=== PATIENT | female | born 1950 | race African-American/Black ===

== ENCOUNTER 2016-12-26 16:36 | Emergency (ER) | payer BC, OTHER ==
--- NOTE | 2016-12-26 18:12 | ER Document Report ---
ED Medical Screen (RME) - General Mode of Arrival: Wheelchair Information source: Patient TRAVEL OUTSIDE OF THE [place] IN LAST 30 DAYS: No <ANDREI ROJO - Last Filed: 12/26/16 18:39> <WILLAM ALVARADO - Last Filed: 12/29/16 03:05> - General Chief Complaint: Chest Pain Stated Complaint: CHEST PAIN Notes: Patient is a 66-year-old female presented emergency department for chest pain and dizziness. Patient dizziness was onset at 3:00 this morning when the patient sat up to go to the bathroom. Patient states that she was able to make it the bathroom and get back in bed. 2 hours after this initial dizziness. The patient started having a headache. When patient got up around 7:00 this morning. The patient stated she started having chest pain in the middle of her chest. Patient states the pain lasted about 20 minutes. It was waxing and waning throughout the rest of the day. Patient is still dizzy at time of exam. Patient denies any nausea or vomiting. (ANDREI ROJO) - Related Data Allergies/Adverse Reactions: erythromycin base [Erythromycin Base] Allergy (Verified 03/11/13 12:36) Past Medical History - Social History Chew tobacco use (# tins/day): No Frequency of alcohol use: None Drug Abuse: None - Past Medical History Cardiac Medical History: Reports: Hx Heart Attack - 2005, Hx Hypercholesterolemia, Hx Hypertension Endocrine Medical History: Reports: Hx Diabetes Mellitus Type 2 Renal/ Medical History: Denies: Hx Peritoneal Dialysis Past Surgical History: Reports: Hx Cardiac Catheterization - stent X3, Hx Orthopedic Surgery - right knee - Immunizations Hx Diphtheria, Pertussis, Tetanus Vaccination: No <ANDREI ROJO - Last Filed: 12/26/16 18:39> Physical Exam - Vital signs Interpretation: Hypertensive, Tachypneic - HEENT Head: Normocephalic, Atraumatic Eyes: Normal Extraocular movements intact: No Eyelashes: Normal Pupils: PERRL - Respiratory Respiratory status: No respiratory distress Chest status: Nontender Breath sounds: Normal Chest palpation: Normal - Cardiovascular Rhythm: Regular Heart sounds: Normal auscultation Murmur: No - Neurological Neuro grossly intact: Yes Cognition: Normal Orientation: AAOx4 Karen Coma Scale Eye Opening: Spontaneous Karen Coma Scale Verbal: Oriented [place] Coma Scale Motor: Obeys Commands Karen Coma Scale Total: 15 Speech: Normal <ANDREI ROJO - Last Filed: 12/26/16 18:39> Course <ANDREI ROJO - Last Filed: 12/26/16 18:39> - Laboratory Result Diagrams: 12/26/16 19:05 12/26/16 19:05 <WILLAM ALVARADO - Last Filed: 12/29/16 03:05> - Re-evaluation Re-evalutation: 12/26/16 18:23 Patient presents emergency per chief complaint of dizziness. She has a history of high blood pressure irb-liztqqi-jkfhrviic diabetes cardiac stents on Plavix hyperlipidemia but denies a history of CVA or TIA. Woke up this morning around 3 :00 to go to the bathroom said she felt lightheaded and dizzy sat on the side of the bed hasn't needs a knee replacement got up to go to the bathroom came back into bed started feeling really dizzy and lightheaded and started yelling out. She denied a headache blurred vision no vision at that time. That persisted she called off work. Around 7:00 this morning she started to develop substernal "indigestion" that lasted about 20 minutes is been intermittent throughout the day and is gone now. She did not take any aspirin for this. She has a history of PA and cardiac stents last one in [address] 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 On examination blood pressure is stable she is afebrile little tachypnea gone examination head is normal psych atraumatic pupils are equal reactive to light bilaterally no vertical or lateral nystagmus. Trachea is midline neck is supple equal bilateral director of business services strength and reflexes symmetrically. Heart rate and rhythm is regular without murmur gallop rub lungs chest has bilateral wheezes rales or rhonchi unable to perform a full abdominal examination and she sitting in a chair. Patient unable to get up to assess ambulation because she doesn't have her cane with her she needs a knee replacement and she can't walk on her own without falling. 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 Going to place orders for CT of the head for cardiac neural workup and transfer to the back to be seen and evaluated by attending physician for further evaluation and disposition. I personally performed the services described in the documentation reviewed the documentation recorded by the scribe in my presence and it accurately incompletely records my words and actions (WILLAM ALVARADO) - Vital Signs Vital signs: Temp Pulse Resp BP Pulse Ox 97.8 F 88 18 110/83 100 12/26/16 22:10 12/26/16 22:10 12/26/16 22:10 12/26/16 22:10 12/26/16 22:10 - Laboratory Laboratory results interpreted by me: 12/26/16 12/26/16 12/26/16 19:05 19:05 19:57 MCV 99 H MCH 33.6 H Glucose 213 H Calcium 10.7 H Urine Nitrite POSITIVE H Ur Leukocyte Esterase TRACE H - EKG Interpretation by Me Additional EKG results interpreted by me: 12/26/16 18:12 EKG interpreted by myself is sinus rhythm at 81 bpm Q waves in the inferior region which is present on her EKG from 03/11/13. (WILLAM ALVARADO) Doctor's Discharge <ANDREI ROJO - Last Filed: 12/26/16 18:39> <WILLAM ALVARADO - Last Filed: 12/29/16 03:05> - Discharge Clinical Impression: Dizziness Chest pain Qualifiers: Chest pain type: other chest pain Qualified Code(s): R07.89 - Other chest pain Urinary tract infection Qualifiers: Urinary tract infection type: site unspecified Hematuria presence: without hematuria Qualified Code(s): N39.0 - Urinary tract infection, site not specified Condition: Stable Disposition: HOME, SELF-CARE Instructions: Chest Pain of Unclear Cause ([facility]), Dizziness ([facility]), Family Physicians / Practices, Urinary Tract Infection ([facility]), Vertigo ([facility]) Additional Instructions: Follow up with your primary care provider in one to 2 days. Return to the emergency room immediately if symptoms worsen or any additional concerns. Prescriptions: Cephalexin Monohydrate [Keflex 500 mg Capsule] 500 mg PO BID #20 capsule Meclizine HCl [Antivert 25 mg Tablet] 25 mg PO TID #20 tablet Forms: Return to Work Referrals: SUKHWINDER GUTIERREZ MD [Primary Care Provider] - Follow up as needed Scribe Documentation - Scribe Written by Scribe:: Andrei Rojo 12/26/16 18:37 acting as scribe for :: Jose <ANDREI ROJO - Last Filed: 12/26/16 18:39>
[2016-12-26] MEDS ORDERED: MECLIZINE HCL 25 MG TABLET PO ONE (18:26)
[2016-12-26] MEDS ORDERED: ONDANSETRON 4 MG TAB.RAPDIS PO ONE (18:27)
[2016-12-26] MEDS ORDERED: ASPIRIN 325 MG TABLET PO ONE (18:27)
[2016-12-26 19:24] LABS: ABSOLUTE BASOPHILS # (AUTO) 0.1 10^3/uL (0.0-0.2); ABSOLUTE EOSINOPHILS # (AUTO) 0.1 10^3/uL (0.0-0.6); ABSOLUTE LYMPHOCYTES (AUTO) 2.8 10^3/uL (0.5-4.7); ABSOLUTE MONOCYTES (AUTO) 0.4 10^3/uL (0.1-1.4); ABSOLUTE NEUT (AUTO) 6.9 10^3/uL (1.7-8.2); BASOPHILS % (AUTO) 0.7 % (0-2); EOSINOPHILS % (AUTO) 0.8 % (0-6); HEMATOCRIT 43.5 % (36.0-47.0); HEMOGLOBIN 14.7 g/dL (12.0-15.5); HGB HCT DIFFERENCE 0.6; LYMPHOCYTES % (AUTO) 27.2 % (13-45); MEAN CORPUSCULAR HEMOGLOBIN 33.6 pg (27.0-33.4); MEAN CORPUSCULAR HGB CONC 33.8 g/dL (32.0-36.0); MEAN CORPUSCULAR VOLUME 99 fl (80-97); MONOCYTES % (AUTO) 3.9 % (3-13); RED BLOOD COUNT 4.38 10^6/uL (3.72-5.28); SEGMENTED NEUTROPHILS % (AUTO) 67.4 % (42-78); WHITE BLOOD COUNT 10.3 10^3/uL (4.0-10.5)
--- NOTE | 2016-12-26 19:35 | EKG REPORT ---
SEVERITY:- ABNORMAL ECG - SINUS RHYTHM INFERIOR INFARCT, AGE INDETERMINATE : Confirmed by: Criselda Cole 26-Dec-2016 19:35:12
[2016-12-26 19:46] LABS: ANION GAP 16 (5-19); BLOOD UREA NITROGEN 14 mg/dL (7-20); CALCIUM 10.7 mg/dL (8.4-10.2); CARBON DIOXIDE 26 mmol/L (22-30); CHLORIDE 99 mmol/L (98-107); CREATINE KINASE 45 U/L (30-135); CREATININE RESULT 0.54 mg/dL (0.52-1.25); GLUCOSE 213 mg/dL (75-110); POTASSIUM 4.3 mmol/L (3.6-5.0); SODIUM 140.6 mmol/L (137-145)
--- NOTE | 2016-12-26 19:46 | ER Document Report ---
ED Dizziness/Weakness - General Chief Complaint: Chest Pain Stated Complaint: CHEST PAIN Time seen by provider: 19:45 Mode of Arrival: Wheelchair TRAVEL OUTSIDE OF THE [place] IN LAST 30 DAYS: No - HPI Patient complains to provider of: Dizziness Onset: This morning Onset/Duration: Sudden Quality of pain: No pain Severity: Moderate Exacerbated by: Change in position, Movement of head Baseline gait: Walks w/o assistance Notes: Patient is a 66-year-old female presented emergency department for chest pain and dizziness. Patient dizziness was onset at 3:00 this morning when the patient sat up to go to the bathroom, patient reports that the dizziness is the sensation of the room spinning. 2 hours after this initial dizziness the patient started having a headache. When patient got up around 7:00 this morning she started having chest pain in the middle of her chest, she reports it is different from when she's had a heart attack in the past, and feels as though it may be related to anxiety or stress because of the dizziness she is consistently having. Patient states the pain lasted about 20 minutes. It was waxing and waning throughout the rest of the day. Patient is still dizzy at time of exam. Patient denies any nausea or vomiting. No neck pain, no vision changes, no shortness of breath, no recent head injury or illness, no fever or chills - Related Data Allergies/Adverse Reactions: erythromycin base [Erythromycin Base] Allergy (Verified 03/11/13 12:36) Past Medical History - General Information source: Patient - Social History Smoking Status: Never Smoker Chew tobacco use (# tins/day): No Frequency of alcohol use: None Drug Abuse: None Family History: Reviewed & Not Pertinent Patient has suicidal ideation: No Patient has homicidal ideation: No - Past Medical History Cardiac Medical History: Reports: Hx Heart Attack - 2005, Hx Hypercholesterolemia, Hx Hypertension Endocrine Medical History: Reports: Hx Diabetes Mellitus Type 2 Renal/ Medical History: Denies: Hx Peritoneal Dialysis Past Surgical History: Reports: Hx Cardiac Catheterization - stent X3, Hx Orthopedic Surgery - right knee - Immunizations Hx Diphtheria, Pertussis, Tetanus Vaccination: No Review of Systems - Review of Systems Constitutional: No symptoms reported EENT: No symptoms reported Cardiovascular: See HPI Respiratory: No symptoms reported Gastrointestinal: No symptoms reported Genitourinary: No symptoms reported Female Genitourinary: No symptoms reported Musculoskeletal: No symptoms reported Skin: No symptoms reported Hematologic/Lymphatic: No symptoms reported Neurological/Psychological: Headaches -: Yes All other systems reviewed and negative Physical Exam - Vital signs Vitals: Temp Pulse Resp BP Pulse Ox 98.3 F 82 26 H 186/72 H 98 12/26/16 16:50 12/26/16 16:50 12/26/16 16:50 12/26/16 16:50 12/26/16 16:50 Interpretation: Hypertensive, Tachypneic - General General appearance: Appears well, Alert - HEENT Head: Normocephalic, Atraumatic Eyes: Normal Conjunctiva: Normal Extraocular movements intact: Yes Eyelashes: Normal Pupils: PERRL Ears: Normal External canal: Normal Tympanic membrane: Normal Sinus: Normal Nasal: Normal Mouth/Lips: Normal Pharynx: Normal Neck: Normal - Respiratory Respiratory status: No respiratory distress Chest status: Nontender Breath sounds: Normal Chest palpation: Normal - Cardiovascular Rhythm: Regular Heart sounds: Normal auscultation Murmur: No - Abdominal Inspection: Obese Distension: No distension Bowel sounds: Normal Tenderness: Nontender Organomegaly: No organomegaly - Back Back: Normal, Nontender - Extremities General upper extremity: Normal inspection, Nontender, Normal color, Normal ROM , Normal temperature General lower extremity: Normal inspection, Nontender, Normal color, Normal ROM , Normal temperature, Normal weight bearing. No: Cecilia's sign - Neurological Neuro grossly intact: Yes Cognition: Normal Orientation: AAOx4 [place] Coma Scale Eye Opening: Spontaneous Karen Coma Scale Verbal: Oriented Karen Coma Scale Motor: Obeys Commands [place] Coma Scale Total: 15 Speech: Normal Motor strength normal: LUE, RUE, LLE, RLE Sensory: Normal - Psychological Associated symptoms: Normal affect, Normal mood - Skin Skin Temperature: Warm Skin Moisture: Dry Skin Color: Normal Course - Re-evaluation Re-evalutation: 12/26/16 21:36 Patient reports feeling much better after eating something, she was able to ambulate without return of symptoms, lab and imaging findings were discussed with her at bedside and are consistent with urinary tract infection, she will be started on antibiotics for this and advised to follow-up with a primary care provider or return if symptoms worsen, patient acknowledges understanding and agreement with this plan - Vital Signs Vital signs: Temp Pulse Resp BP Pulse Ox 98.3 F 84 26 H 138/64 H 98 12/26/16 16:50 12/26/16 19:50 12/26/16 16:50 12/26/16 19:50 12/26/16 16:50 - Laboratory Result Diagrams: 12/26/16 19:05 12/26/16 19:05 Laboratory results interpreted by me: 12/26/16 12/26/16 12/26/16 19:05 19:05 19:57 MCV 99 H MCH 33.6 H Glucose 213 H Calcium 10.7 H Urine Nitrite POSITIVE H Ur Leukocyte Esterase TRACE H - Diagnostic Test Radiology reviewed: Image reviewed, Reports reviewed - EKG Interpretation by Me EKG shows normal: Sinus rhythm Rate: Normal Rhythm: Torsades When compared to previous EKG there are: No significant change Discharge - Discharge Clinical Impression: Dizziness Chest pain Qualifiers: Chest pain type: other chest pain Qualified Code(s): R07.89 - Other chest pain Urinary tract infection Qualifiers: Urinary tract infection type: site unspecified Hematuria presence: without hematuria Qualified Code(s): N39.0 - Urinary tract infection, site not specified Condition: Stable Disposition: HOME, SELF-CARE Instructions: Chest Pain of Unclear Cause ([facility]), Urinary Tract Infection ([facility]) , Dizziness ([facility]), Vertigo ([facility]), Family Physicians / Practices Additional Instructions: Follow up with your primary care provider in one to 2 days. Return to the emergency room immediately if symptoms worsen or any additional concerns. Prescriptions: Cephalexin Monohydrate [Keflex 500 mg Capsule] 500 mg PO BID #20 capsule Meclizine HCl [Antivert 25 mg Tablet] 25 mg PO TID #20 tablet Referrals: SUKHWINDER GUTIERREZ MD [Primary Care Provider] - Follow up as needed
[2016-12-26 19:59] LABS: TROPONIN I < 0.012 ng/mL
[2016-12-26 20:20] LABS: APPEARANCE,URINE SLIGHTLY-CLOUDY; BILIRUBIN,URINE NEGATIVE (NEGATIVE); GLUCOSE, URINE NEGATIVE (NEGATIVE); KETONES,URINE NEGATIVE (NEGATIVE); LEUKOCYTE ESTERASE,URINE TRACE (NEGATIVE); NITRITE,URINE POSITIVE (NEGATIVE); PROTEIN,URINE NEGATIVE (NEGATIVE); URINE SPECIFIC GRAVITY 1.012; UROBILINOGEN,URINE NEGATIVE mg/dL (<2.0)
[2016-12-26] MEDS ORDERED: NORMAL SALINE 1000 ML 1,000 ML IV PRN (20:24)
[2016-12-26] MEDS ORDERED: CEPHALEXIN 500 MG CAPSULE PO ONE (21:35)
[2016-12-26 22:13] VITALS: BP 110/83
== END 2016-12-26 22:15 | disposition home or self-care (01) ==
LOC: ER 16:36
DX: R07.9 Chest pain, unspecified (principal); R42 Dizziness and giddiness; N39.0 Urinary tract infection, site not specified; R51 Headache; R06.82 Tachypnea, not elsewhere classified; I25.2 Old myocardial infarction; I10 Essential (primary) hypertension; E11.9 Type 2 diabetes mellitus without complications; Z98.61 Coronary angioplasty status; Z88.1 Allergy status to other antibiotic agents
CPT/HCPCS: 93005; 99285; 36415; 82550; 85025; 80048; 81001; 84484; 83880; 71010; 70450; 93010; S0119

== ENCOUNTER → 2017-05-25 | Outpatient (CLI) | payer OTHER ==
--- NOTE | 2017-05-25 12:42 | RADIOLOGY REPORT (SQ) ---
EXAM DESCRIPTION: KNEE BILATERAL 1-2 VIEWS COMPLETED DATE/TIME: 05/25/2017 10:58 am REASON FOR STUDY: OSTEO ARTHRISTIS OF KNEES COMPARISON: 12/19/2012 NUMBER OF VIEWS: Two views right knee, two views left knee TECHNIQUE: AP and lateral standing bilateral knees. LIMITATIONS: None. FINDINGS: MINERALIZATION: Normal. RIGHT KNEE High-grade patellofemoral, medial, and lateral compartment joint space narrowing with a [id number] appearance, and bulky osteophytes. No suprapatellar knee joint effusion or loose bodies. Atheroscle rotic popliteal artery calcification. LEFT KNEE High-grade patellofemoral, medial, and lateral compartment joint space narrowing with a vveo-[id number] appearance, and bulky osteophytes. No suprapatellar knee joint effusion or loose bodies. Atheroscler otic popliteal artery calcification. IMPRESSION: Advanced tricompartment osteoarthritis both knees TECHNICAL DOCUMENTATION: JOB ID: [id number] [employer]- All Rights Reserved
== END ==
LOC: RAD 10:07
DX: M17.0 Bilateral primary osteoarthritis of knee (principal)

== ENCOUNTER 2017-12-06 18:33 | Emergency (ER) | payer MEDICARE, BC ==
--- NOTE | 2017-12-06 19:01 | ER Document Report ---
ED Medical Screen (RME) - General Chief Complaint: Chest Pain Stated Complaint: CHEST PAIN Time Seen by Provider: 12/06/17 19:00 Notes: 67-year-old female patient with chest pain and a history of inferior wall [place] with 3 stents. Pain started about 2 AM this morning. It was substernal radiating to the left. I have greeted and performed a rapid initial assessment of this patient. A comprehensive ED assessment and evaluation of the patient, analysis of test results and completion of the medical decision making process will be conducted by additional ED providers. TRAVEL OUTSIDE OF THE [place] IN LAST 30 DAYS: No - Related Data Allergies/Adverse Reactions: erythromycin base [Erythromycin Base] Allergy (Verified 12/06/17 18:36) Past Medical History - Past Medical History Cardiac Medical History: Reports: Hx Heart Attack - 2004, Hx Hypercholesterolemia, Hx Hypertension Endocrine Medical History: Reports: Hx Diabetes Mellitus Type 2 Renal/ Medical History: Denies: Hx Peritoneal Dialysis Past Surgical History: Reports: Hx Cardiac Catheterization - stent X3, Hx Orthopedic Surgery - right knee - Immunizations Hx Diphtheria, Pertussis, Tetanus Vaccination: No
[2017-12-06 19:24] LABS: ABSOLUTE EOSINOPHILS # (AUTO) 0.1 10^3/uL (0.0-0.6); ABSOLUTE LYMPHOCYTES (AUTO) 2.9 10^3/uL (0.5-4.7); ABSOLUTE MONOCYTES (AUTO) 0.6 10^3/uL (0.1-1.4); ABSOLUTE NEUT (AUTO) 9.1 10^3/uL (1.7-8.2); BASOPHILS % (AUTO) 0.4 % (0-2); EOSINOPHILS % (AUTO) 0.7 % (0-6); HEMATOCRIT 43.1 % (36.0-47.0); HEMOGLOBIN 14.7 g/dL (12.0-15.5); LYMPHOCYTES % (AUTO) 22.7 % (13-45); MEAN CORPUSCULAR HEMOGLOBIN 34.1 pg (27.0-33.4); MEAN CORPUSCULAR HGB CONC 34.1 g/dL (32.0-36.0); MEAN CORPUSCULAR VOLUME 100 fl (80-97); MONOCYTES % (AUTO) 4.8 % (3-13); PLATELET COUNT 350 10^3/uL (150-450); RED CELL DISTRIBUTION WIDTH 13.5 % (11.5-14.0); SEGMENTED NEUTROPHILS % (AUTO) 71.4 % (42-78); TOTAL CELLS COUNTED % (AUTO) 100 %; WHITE BLOOD COUNT 12.8 10^3/uL (4.0-10.5)
[2017-12-06 19:58] LABS: ALANINE AMINOTRANSFERASE 41 U/L (9-52); ALBUMIN 4.4 g/dL (3.5-5.0); ALKALINE PHOSPHATASE 91 U/L (38-126); ANION GAP 11 (5-19); ASPARTATE AMINO TRANSFERASE 22 U/L (14-36); BILIRUBIN,DIRECT 0.2 mg/dL (0.0-0.4); BILIRUBIN,TOTAL 0.3 mg/dL (0.2-1.3); BLOOD UREA NITROGEN 15 mg/dL (7-20); CALCIUM 10.4 mg/dL (8.4-10.2); CARBON DIOXIDE 31 mmol/L (22-30); CHLORIDE 98 mmol/L (98-107); CREATINE KINASE 40 U/L (30-135); GLUCOSE 146 mg/dL (75-110); POTASSIUM 3.9 mmol/L (3.6-5.0); SODIUM 140.2 mmol/L (137-145); TOTAL PROTEIN 7.3 g/dL (6.3-8.2)
[2017-12-06] MEDS ORDERED: ONDANSETRON HCL INJ/PF 4 MG/2 ML SDV IV ONE (20:02)
[2017-12-06] MEDS ORDERED: MORPHINE SULFATE 10 MG/ML INJ IV ONE (20:03)
[2017-12-06 20:10] LABS: CREATINE KINASE MB 0.5 ng/mL (<4.55); TROPONIN I 0.016 ng/mL
--- NOTE | 2017-12-06 20:39 | ER Document Report ---
ED General - General Chief Complaint: Chest Pain Stated Complaint: CHEST PAIN Time Seen by Provider: 12/06/17 19:00 Information source: Patient Notes: Patient is a 67-year-old female who presents to the emergency department with complaints of upper abdominal pain that radiates to her right upper quadrant. Patient states this started about 2:00 this morning. She has vomited one time at home but denies any fever, nausea, or diarrhea. Patient reports that she tried taking Zantac several times today and she felt that this may be her acid reflux acting up. Patient reports that she had a myocardial infarction in 2009 with 3 stents placed, a hiatal hernia, hypertension and nau-cumbeku-tbalsluym diabetes. She reports a surgical history of a right knee surgery in the 80s. She smokes occasionally, drinks alcohol occasionally and denies any illicit drug use. TRAVEL OUTSIDE OF THE [place] IN LAST 30 DAYS: No - Related Data Allergies/Adverse Reactions: erythromycin base [Erythromycin Base] Allergy (Verified 12/06/17 18:36) Past Medical History - General Information source: Patient - Social History Smoking Status: Current Some Day Smoker Frequency of alcohol use: Occasional Drug Abuse: None Lives with: Family Family History: Reviewed & Not Pertinent - Past Medical History Cardiac Medical History: Reports: Hx Heart Attack - 2009 with 3 stents, Hx Hypercholesterolemia, Hx Hypertension Endocrine Medical History: Reports: Hx Diabetes Mellitus Type 2 Renal/ Medical History: Denies: Hx Peritoneal Dialysis Past Surgical History: Reports: Hx Cardiac Catheterization - stent X3, Hx Orthopedic Surgery - right knee - Immunizations Hx Diphtheria, Pertussis, Tetanus Vaccination: Yes Review of Systems - Review of Systems Constitutional: No symptoms reported EENT: No symptoms reported Cardiovascular: See HPI Respiratory: No symptoms reported Gastrointestinal: See HPI Genitourinary: No symptoms reported Female Genitourinary: No symptoms reported Musculoskeletal: No symptoms reported Skin: No symptoms reported Hematologic/Lymphatic: No symptoms reported Neurological/Psychological: No symptoms reported Physical Exam - Vital signs Vitals: Resp Pulse Ox 31 H 97 12/06/17 18:59 12/06/17 18:59 - Notes Notes: PHYSICAL EXAMINATION: GENERAL: Well-appearing, well-nourished and in no acute distress. HEAD: Atraumatic, normocephalic. EYES: Pupils equal round and reactive to light, extraocular movements intact, conjunctiva are normal. ENT: Nares patent, oropharynx clear without exudates. Moist mucous membranes. NECK: Normal range of motion, supple without lymphadenopathy LUNGS: Breath sounds clear to auscultation bilaterally and equal. No wheezes rales or rhonchi. HEART: Regular rate and rhythm without murmurs ABDOMEN: Soft, right upper quadrant and epigastric area tender, nondistended abdomen, +murphys sign. Female : deferred Musculoskeletal: Normal range of motion, no pitting or edema. No cyanosis. NEUROLOGICAL: Cranial nerves grossly intact. Normal speech. Normal sensory, motor exams PSYCH: Normal mood, normal affect. SKIN: Warm, Dry, normal turgor, no rashes or lesions noted. Course - Re-evaluation Re-evalutation: On initial assessment patient, patient denies any chest pain. EKG shows a sinus rhythm with no ST elevations or depressions, there are Q waves present however compared with previous EKG there is no change. Troponin is negative. Patient reports that the symptoms started at 2:00 this morning. Low suspicion of ACS. Patient is reporting upper abdominal/epigastric pain that radiates to her right upper quadrant. Will add on lipase and RUQ U/S to orders initiated in RME and treat for pain and nausea. Patient is agreeable to this plan. Right upper quadrant ultrasound shows fatty liver and gallstones, there is no pericholecystic fluid noted and no wall thickening. All labs are unremarkable. Patient is reporting no nausea is this time and pain 1/5. Discussed multiple options with patient, patient has decided that prefers to go home. Patient will be given information for surgical referral, patient will call tomorrow for an appointment. Discussed low fat, non-spicy diet with patient. Patient given strict ED return precautions to include worsening abdominal pain, persistent vomiting and fever. - Vital Signs Vital signs: Temp Pulse Resp BP Pulse Ox 98.2 F 71 16 145/50 H 98 12/06/17 23:10 12/06/17 23:10 12/06/17 23:10 12/06/17 23:10 12/06/17 23:10 - Laboratory Result Diagrams: 12/06/17 19:15 12/06/17 19:15 Laboratory results interpreted by me: 12/06/17 12/06/17 19:15 19:15 WBC 12.8 H MCV 100 H MCH 34.1 H Absolute Neutrophils 9.1 H Carbon Dioxide 31 H Creatinine 0.51 L Glucose 146 H Calcium 10.4 H - EKG Interpretation by Ma EKG shows normal: Sinus rhythm Rate: Normal Discharge - Discharge Clinical Impression: Gallstone Qualifiers: Cholecystitis presence: without cholecystitis Biliary obstruction: without biliary obstruction Qualified Code(s): K80.20 - Calculus of gallbladder without cholecystitis without obstruction Condition: Stable Disposition: HOME, SELF-CARE Instructions: Gallbladder Disease ([facility]), Low-Fat Diet ([facility]), Oral Narcotic Medication ([facility]) Additional Instructions: Your abdominal pain appears to be caused by gallstones in your gallbladder. Please take the pain and nausea medications as needed. We are giving you information to follow-up with a surgeon, please call them at your earliest convenience to set up an appointment. Please return to the emergency department if you develop fever or chills, have persistent vomiting, cannot keep anything down, or have increased pain not controlled by the pain medications, or any other concerning symptoms. Prescriptions: Hydrocodone/Acetaminophen [[place] 5-325 mg Tablet] 0.5 - 1 tab PO Q4 PRN #12 tablet PRN Reason: Ondansetron [Zofran Odt 4 mg Tablet] 1 - 2 tab PO Q4H PRN #15 tab.rapdis PRN Reason: For Nausea/Vomiting Referrals: JERAD GROVE DO [Primary Care Provider] - Follow up as needed SURGERY [Provider Group] - Follow up as needed
--- NOTE | 2017-12-06 21:19 | RADIOLOGY REPORT (SQ) ---
EXAM DESCRIPTION: U/S ABDOMEN LIMITED W/O DOP COMPLETED DATE/TIME: 12/06/2017 9:07 pm REASON FOR STUDY: epigastric, RUQ pain COMPARISON: None. TECHNIQUE: Dynamic and static grayscale images acquired of the right upper quadrant and recorded on PACS. Additional selected color Doppler and spectral images recorded. LIMITATIONS: Markedly limited study due to the patient's obesity and overlying bowel gas. FINDINGS: PANCREAS: Obscured. LIVER: Limited visualization. Echotexture is coarse with increased echogenicity consistent with fatt y infiltration. No masses. LIVER VASCULATURE: Not visualized. GALLBLADDER: Gallstone(s). No pericholecystic fluid. No wall thickening. ULTRASOUND-DETECTED CALDWELL'S SIGN: Positive. INTRAHEPATIC DUCTS AND COMMON DUCT: Not visualized. INFERIOR VENA CAVA: Not visualized. AORTA: Not visualized. RIGHT KIDNEY: Normal size. Normal echogenicity. No solid or suspicious masses. No hydronephrosis. No calcifications. PERITONEAL CAVITY AND RIGHT PLEURAL SPACE: No ascites or effusions. OTHER: No other significant finding. IMPRESSION: MARKEDLY LIMITED STUDY. GALLSTONES. FATTY INFILTRATION OF THE LIVER. TECHNICAL DOCUMENTATION: JOB ID: [id number] [employer]- All Rights Reserved Reading location - IP/workstation name: [email or web address]
[2017-12-06] MEDS ORDERED: KETOROLAC TROMETHAMINE INJ/PF 30 MG/1 ML SDV IV ONE (22:04)
[2017-12-06] MEDS ORDERED: ONDANSETRON ODT 4 MG TAB (6 TAB/ER DISP) PO PRN (22:06)
--- NOTE | 2017-12-06 22:54 | EKG REPORT ---
SEVERITY:- ABNORMAL ECG - SINUS RHYTHM PROBABLE INFERIOR INFARCT, AGE INDETERMINATE : Confirmed by: Criselda Cole 06-Dec-2017 22:53:45
[2017-12-06 23:35] VITALS: BP 145/50
== END 2017-12-06 23:20 | disposition home or self-care (01) ==
LOC: ER 18:33
DX: K80.20 Calculus of gallbladder without cholecystitis without obstruction (principal); K21.9 Gastro-esophageal reflux disease without esophagitis; K76.0 Fatty (change of) liver, not elsewhere classified; R11.10 Vomiting, unspecified; I10 Essential (primary) hypertension; E11.9 Type 2 diabetes mellitus without complications; F17.200 Nicotine dependence, unspecified, uncomplicated; I25.2 Old myocardial infarction; Z95.5 Presence of coronary angioplasty implant and graft; Z88.1 Allergy status to other antibiotic agents
CPT/HCPCS: 93005; 99285; 96374; 96375; 36415; 82553; 82550; 83690; 85025; 80053; 84484; 76705; 93010; J1885; J2270; J2405; A9270

== ENCOUNTER 2017-12-07 17:07 | Inpatient (IN) | payer MEDICARE, BC ==
[2017-12-07] MEDS ORDERED: ONDANSETRON HCL INJ/PF 4 MG/2 ML SDV IV ONE (19:05)
[2017-12-07] MEDS ORDERED: MORPHINE SULFATE 10 MG/ML INJ IV ONE (19:05)
[2017-12-07] MEDS ORDERED: NORMAL SALINE 1000 ML 1,000 ML IV ONE (19:05)
--- NOTE | 2017-12-07 19:06 | ER Document Report ---
ED Medical Screen (RME) - General Chief Complaint: Abdominal Pain Stated Complaint: ABDOMINAL PAIN Time Seen by Provider: 12/07/17 19:05 Notes: Patient states that she was seen here yesterday and diagnosed with gallstones. She states she was sent home with pain medication and nausea medication. She states she is unable to tolerate the pain at home. She states she returned because she wants to have the gallstones "taken out". TRAVEL OUTSIDE OF THE [place] IN LAST 30 DAYS: No - Related Data Allergies/Adverse Reactions: erythromycin base [Erythromycin Base] Allergy (Verified 12/07/17 17:10) Past Medical History - Social History Chew tobacco use (# tins/day): No Frequency of alcohol use: Occasional Drug Abuse: None - Past Medical History Cardiac Medical History: Reports: Hx Heart Attack - 2009 with 3 stents, Hx Hypercholesterolemia, Hx Hypertension Endocrine Medical History: Reports: Hx Diabetes Mellitus Type 2 Renal/ Medical History: Denies: Hx Peritoneal Dialysis Past Surgical History: Reports: Hx Cardiac Catheterization - stent X3, Hx Orthopedic Surgery - right knee - Immunizations Hx Diphtheria, Pertussis, Tetanus Vaccination: Yes Physical Exam - Vital signs Vitals: Temp Pulse Resp BP Pulse Ox 97.6 F 76 22 H 129/54 H 98 12/07/17 17:52 12/07/17 17:52 12/07/17 17:52 12/07/17 17:52 12/07/17 17:52 Course - Vital Signs Vital signs: Temp Pulse Resp BP Pulse Ox 97.6 F 76 22 H 129/54 H 98 12/07/17 17:52 12/07/17 17:52 12/07/17 17:52 12/07/17 17:52 12/07/17 17:52
[2017-12-07 19:38] LABS: ABSOLUTE BASOPHILS # (AUTO) 0.1 10^3/uL (0.0-0.2); ABSOLUTE LYMPHOCYTES (AUTO) 1.8 10^3/uL (0.5-4.7); ABSOLUTE NEUT (AUTO) 12.3 10^3/uL (1.7-8.2); BASOPHILS % (AUTO) 0.4 % (0-2); EOSINOPHILS % (AUTO) 0.2 % (0-6); HEMATOCRIT 39.6 % (36.0-47.0); HEMOGLOBIN 13.6 g/dL (12.0-15.5); LYMPHOCYTES % (AUTO) 12.2 % (13-45); MEAN CORPUSCULAR HEMOGLOBIN 34.3 pg (27.0-33.4); MEAN CORPUSCULAR HGB CONC 34.3 g/dL (32.0-36.0); MEAN CORPUSCULAR VOLUME 100 fl (80-97); MONOCYTES % (AUTO) 6.3 % (3-13); PLATELET COUNT 330 10^3/uL (150-450); RED BLOOD COUNT 3.96 10^6/uL (3.72-5.28); RED CELL DISTRIBUTION WIDTH 13.4 % (11.5-14.0); SEGMENTED NEUTROPHILS % (AUTO) 80.9 % (42-78); TOTAL CELLS COUNTED % (AUTO) 100 %; WHITE BLOOD COUNT 15.2 10^3/uL (4.0-10.5)
--- NOTE | 2017-12-07 20:11 | ER Document Report ---
ED General - General Chief Complaint: Abdominal Pain Stated Complaint: ABDOMINAL PAIN Time Seen by Provider: 12/07/17 19:05 TRAVEL OUTSIDE OF THE [place] IN LAST 30 DAYS: No - HPI Notes: Patient is a 67-year-old female with a history of OR in 2009 with 3 stent placements, hiatal hernia, hypertension, diabetes type 2 who presents to the ED complaining of continued intermittent right upper quadrant and epigastric pain 1-2 days. Patient was evaluated yesterday here in the emergency department and was found to have gallstones with otherwise negative workup. Patient states that her pain is worsened with food intake and it starts in the epigastrium and moves over to the right upper quadrant. Patient has had intermittent nausea over the last couple days as well, but has not vomited since Thursday. Patient's last p.o. intake was applesauce about 3 hours ago at 1700, and prior to that was some toast and some fruit at 1500. Patient states that she is still urinating normally and her last normal bowel movement was on Thursday. Patient has not been having any melena or hematochezia. Patient states that she is ambulatory without any chest pains or shortness of breath. Patient states that she is currently comfortable as she is not eating any food. Denies any headache , fever, neck pain, URI, sore throat, chest pain, palpitations, syncope, cough, shortness of breath, wheeze, dyspnea, vomiting/diarrhea, urinary retention, dysuria, hematuria, back pain, loss of control of bowel or bladder, numbness/ tingling, saddle anesthesia, muscle paralysis/weakness, or rash. + ASA 81mg daily and Plavix. (Plavix this AM around 1100, pt does not believe she took her ASA this morning). + occ smoker/etoh, no drugs - Related Data Allergies/Adverse Reactions: erythromycin base [Erythromycin Base] Allergy (Verified 12/07/17 17:10) Past Medical History - Social History Smoking Status: Current Some Day Smoker Chew tobacco use (# tins/day): No Frequency of alcohol use: Occasional Drug Abuse: None Family History: Reviewed & Not Pertinent Patient has suicidal ideation: No Patient has homicidal ideation: No - Past Medical History Cardiac Medical History: Reports: Hx Heart Attack - 2009 with 3 stents, Hx Hypercholesterolemia, Hx Hypertension Endocrine Medical History: Reports: Hx Diabetes Mellitus Type 2 Renal/ Medical History: Denies: Hx Peritoneal Dialysis Past Surgical History: Reports: Hx Cardiac Catheterization - stent X3, Hx Orthopedic Surgery - right knee - Immunizations Hx Diphtheria, Pertussis, Tetanus Vaccination: Yes Review of Systems - Review of Systems -: Yes All other systems reviewed and negative Physical Exam - Vital signs Vitals: Temp Pulse Resp BP Pulse Ox 97.6 F 76 22 H 129/54 H 98 12/07/17 17:52 12/07/17 17:52 12/07/17 17:52 12/07/17 17:52 12/07/17 17:52 - Notes Notes: PHYSICAL EXAMINATION: GENERAL: Well-appearing, well-nourished and in no acute distress. A&Ox4. Morbidly obese. Answers questions appropriately. HEAD: Atraumatic, normocephalic. EYES: Pupils equal round and reactive to light, extraocular movements intact, sclera anicteric, conjunctiva are normal. ENT: Nares patent and without discharge. oropharynx clear without exudates. No tonsilar hypertrophy or erythema. Moist mucous membranes. NECK: Normal range of motion, supple without lymphadenopathy LUNGS: Breath sounds clear to auscultation bilaterally and equal. No wheezes rales or rhonchi. HEART: Regular rate and rhythm without murmurs, rubs, gallops. ABDOMEN: Soft, nondistended abdomen. No guarding, no rebound. No masses appreciated. Normal bowel sounds present. No CVA tenderness bilaterally. + RUQ and mild epigastric tenderness to palp. + julio. Musculoskeletal: FROM to passive/active. Strength 5+/5. Extremities: No cyanosis, clubbing, or edema b/l. Peripheral pulses 2+. Capillary refill less than 3 seconds. NEUROLOGICAL: Normal speech, normal gait. Normal sensory, motor exams PSYCH: Normal mood, normal affect. SKIN: Warm, Dry, normal turgor, no rashes or lesions noted. Course - Re-evaluation Re-evalutation: 12/07/17 20:[address] Magdaleno who will come evaluate the patient. 12/07/17 20:54 Dr. Magdaleno evaluated and accepted patient for failed outpatient. We will keep her NPO. Hold Plavix/ASA. Pre-op ekg, cxr, ptinr/ptt ordered. Pt in agreement with plan. - Vital Signs Vital signs: Temp Pulse Resp BP Pulse Ox 97.6 F 76 22 H 129/54 H 98 12/07/17 17:52 12/07/17 17:52 12/07/17 17:52 12/07/17 17:52 12/07/17 17:52 - Laboratory Result Diagrams: 12/07/17 19:29 12/07/17 19:55 Laboratory results interpreted by me: 12/07/17 12/07/17 19:29 19:55 WBC 15.2 H MCV 100 H MCH 34.3 H Seg Neutrophils % 80.9 H Lymphocytes % 12.2 L Absolute Neutrophils 12.3 H Chloride 96 L Creatinine 0.49 L Glucose 206 H Calcium 10.3 H Discharge - Discharge Clinical Impression: Gallstones, RUQ pain Condition: Stable Disposition: ADMITTED INPATIENT Admitting Provider: Surgicalist - Dr. Magdaleno Unit Admitted: Surgical Floor Referrals: JERAD GROVE DO [Primary Care Provider] - Follow up as needed
[2017-12-07 20:25] LABS: ALANINE AMINOTRANSFERASE 29 U/L (9-52); ALBUMIN 4.3 g/dL (3.5-5.0); ALKALINE PHOSPHATASE 86 U/L (38-126); ANION GAP 12 (5-19); ASPARTATE AMINO TRANSFERASE 21 U/L (14-36); BILIRUBIN,DIRECT 0.4 mg/dL (0.0-0.4); BILIRUBIN,TOTAL 0.7 mg/dL (0.2-1.3); BLOOD UREA NITROGEN 11 mg/dL (7-20); CALCIUM 10.3 mg/dL (8.4-10.2); CARBON DIOXIDE 30 mmol/L (22-30); CHLORIDE 96 mmol/L (98-107); GLUCOSE 206 mg/dL (75-110); LIPASE 86.3 U/L (23-300); POTASSIUM 3.8 mmol/L (3.6-5.0); SODIUM 137.8 mmol/L (137-145); TOTAL PROTEIN 7.6 g/dL (6.3-8.2)
[2017-12-07] MEDS ORDERED: DEXTROSE 50%-WATER 25 GM/50 ML DISP.SYRIN IV PRN ×2 (21:03)
[2017-12-07] MEDS ORDERED: DEXTROSE 40% GEL 15 GM TUBE PO PRN ×2 (21:03)
[2017-12-07] MEDS ORDERED: GLUCAGON,HUMAN RECOMB 1 MG INJ IM PRN (21:03)
[2017-12-07 21:07] LABS: INTERNATIONAL RATION (INR) 0.91; PROTHROMBIN TIME 12.7 SEC (11.4-15.4)
[2017-12-07 21:08] LABS: PARTIAL THROMBOPLASTIN TIME 22.5 SEC (23.5-35.8)
--- NOTE | 2017-12-07 21:14 | PDOC H&P ---
History of Present Illness Admission Date/PCP: 12/07/17 21:01 JERAD GROVE DO Patient complains of: Abdominal pain History of Present Illness: MAGGIE RIDER is a 67 year old female Patient is seen in the emergency department the second time via ground rescue complaining of abdominal pain nausea, radiation to the right upper quadrant and back. She was seen yesterday in the emergency department where she was evaluated and found to have gallstones by gallbladder ultrasonography. She was given the option to be admitted but preferred to be discharged home. Returns to the emergency department with the above complaints. Last bowel movement yesterday, normal. She has been hurting for 2 days. She has previous episodes of abdominal pain. Never had a colonoscopy. Surgery was consulted and she was advised admission for definitive management. Past Medical History Past Medical History: Obesity Cardiac Medical History: Reports: Myocardial Infarction - 2009 with 3 stents, Hyperlipidema, Hypertension Endocrine Medical History: Reports: Diabetes Mellitus Type 2 Past Surgical History Past Surgical History: Reports: Cardiac Catheterization - stent X3, Orthopedic Surgery - right knee, Other Social History Smoking Status: Current Some Day Smoker Hx Recreational Drug Use: No Hx Prescription Drug Abuse: No Family History Family History: Reviewed & Not Pertinent Parental Family History Reviewed: Yes Children Family History Reviewed: Yes Sibling(s) Family History Reviewed.: Yes Medication/Allergy Allergies/Adverse Reactions: erythromycin base [Erythromycin Base] Allergy (Verified 12/07/17 17:10) Review of Systems Constitutional: PRESENT: as per HPI Eyes: ABSENT: visual disturbances Ears: ABSENT: hearing changes Cardiovascular: ABSENT: chest pain, dyspnea on exertion, edema, orthropnea, palpitations Gastrointestinal: PRESENT: as per HPI Genitourinary: ABSENT: dysuria, hematuria Musculoskeletal: PRESENT: other - Patient has chronic knee pain. ABSENT: joint swelling Integumentary: ABSENT: rash, wounds Psychiatric: ABSENT: anxiety, depression, homidical ideation, suicidal ideation Endocrine: ABSENT: cold intolerance, heat intolerance, polydipsia, polyuria Physical Exam Vital Signs: Temp Pulse Resp BP Pulse Ox 97.6 F 76 22 H 129/54 H 98 12/07/17 17:52 12/07/17 17:52 12/07/17 17:52 12/07/17 17:52 12/07/17 17:52 General appearance: PRESENT: no acute distress Head exam: PRESENT: normocephalic Eye exam: PRESENT: EOMI Ear exam: PRESENT: normal external ear exam Mouth exam: PRESENT: dry mucosa Neck exam: PRESENT: full ROM Respiratory exam: PRESENT: clear to auscultation roro Cardiovascular exam: PRESENT: RRR Pulses: PRESENT: normal carotid pulses, normal radial pulses, +1 pedal pulses bilateral GI/Abdominal exam: PRESENT: other - Distended, epigastric tenderness without rigidity or guarding Rectal exam: PRESENT: deferred Extremities exam: PRESENT: full ROM Musculoskeletal exam: PRESENT: ambulatory Neurological exam: PRESENT: alert, awake, oriented to person, oriented to place Psychiatric exam: PRESENT: appropriate affect Assessment & Plan - Diagnosis (1) Cholecystitis with cholelithiasis Qualifiers: Cholelithiasis location: gallbladder Cholecystitis acuity: acute and chronic Biliary obstruction: without biliary obstruction Qualified Code(s): K80.12 - Calculus of gallbladder with acute and chronic cholecystitis without obstruction Is this a current diagnosis for this admission?: Yes Plan: Because of intractable pain, patient will be admitted to the surgical service, kept on ice chips, otherwise n.p.o., Plavix held, and eventually set up for laparoscopic, possible open cholecystectomy likely in 48 hours. In the interim we will check chest x-ray and EKG and if necessary get cardiac clearance. I have explained to the above to the patient and I believe she understands and agrees to proceed. (2) Gallstones Is this a current diagnosis for this admission?: Yes (3) Morbid obesity with BMI of 50.0-59.9, adult Is this a current diagnosis for this admission?: Yes (4) Hypertension Qualifiers: Hypertension type: essential hypertension Qualified Code(s): I10 - Essential (primary) hypertension Is this a current diagnosis for this admission?: Yes (5) Diabetes mellitus Qualifiers: Diabetes mellitus type: type 2 Diabetes mellitus fdc insulin use: with medical terminologist use Diabetes mellitus complication status: without complication Qualified Code(s): E11.9 - Type 2 diabetes mellitus without complications; Z79.4 - FDC (current) use of insulin; Z79.4 - FDC ( current) use of insulin; Z79.4 - FDC (current) use of insulin; Z79.4 - dedicated intermodal truck driver (current) use of insulin Is this a current diagnosis for this admission?: Yes Plan: Will place on sliding insulin scale (6) Smoker Is this a current diagnosis for this admission?: Yes (7) Elevated cholesterol Is this a current diagnosis for this admission?: Yes (8) History of myocardial infarction Is this a current diagnosis for this admission?: Yes Plan: 2010 with stents , on Plavix; will check EKG may require cardiac evaluation (9) Anticoagulation adequate Is this a current diagnosis for this admission?: Yes Plan: Patient on Plavix since 2009 last taken at 11:00 AM today - Time Time Spent: 50 to 70 Minutes Critical Time spent with patient: Less than 15 minutes Anticipated discharge: Home - Inpatient Certification Based on my medical assessment, after consideration of the patient's comorbidities, presenting symptoms, or acuity I expect that the services needed warrant INPATIENT care.: Yes I certify that my determination is in accordance with my understanding of Medicare's requirements for reasonable and necessary INPATIENT services [42 CFR 412.3e].: Yes Medical Necessity: Need for Pain Control, Need for IV Antibiotics, Need for Surgery
--- NOTE | 2017-12-07 21:37 | RADIOLOGY REPORT (SQ) ---
EXAM DESCRIPTION: CHEST 2 VIEWS COMPLETED DATE/TIME: 12/07/2017 9:17 pm REASON FOR STUDY: pre-op, epigastric/RUQ pain COMPARISON: 2016. NUMBER OF VIEWS: Two view. TECHNIQUE: Frontal and lateral radiographic views of the chest acquired. LIMITATIONS: None. FINDINGS: LUNGS AND PLEURA: Low lung volumes. No opacities, masses or pneumothorax. No pleural eff usion. MEDIASTINUM AND HILAR STRUCTURES: No masses. No contour abnormalities. HEART AND VASCULAR STRUCTURES: Heart normal in size and contour. No evidence for failure. BONES: No acute findings. HARDWARE: None in the chest. OTHER: No other significant finding. IMPRESSION: LOW LUNG VOLUMES. NO SIGNIFICANT RADIOGRAPHIC FINDING IN THE CHEST. TECHNICAL DOCUMENTATION: JOB ID: [id number] [employer]- All Rights Reserved Reading location - IP/workstation name: [email or web address]
[2017-12-07] MEDS: NORMAL SALINE 1000 ML 1,000 ML IV PRN (22:01)
[2017-12-07] MEDS: CEFAZOLIN 1 GM/D5W RTU 1 GM/50 ML RTUPB IV SCH (22:02)
[2017-12-07] MEDS: INSULIN REG, HUMAN 100 UNIT/ML 3 ML VIAL (PYX) SUBCUT PRN (22:59)
[2017-12-08] MEDS: NORMAL SALINE 1000 ML 1,000 ML IV PRN ×2 (03:56→13:48)
[2017-12-08] MEDS: CEFAZOLIN 1 GM/D5W RTU 1 GM/50 ML RTUPB IV SCH ×3 (05:23→21:56)
[2017-12-08] MEDS: INSULIN REG, HUMAN 100 UNIT/ML 3 ML VIAL (PYX) SUBCUT PRN (05:25)
[2017-12-08] MEDS: KETOROLAC TROMETHAMINE INJ/PF 30 MG/1 ML SDV IV PRN ×2 (05:34→15:48)
--- NOTE | 2017-12-08 07:36 | EKG REPORT ---
SEVERITY:- ABNORMAL ECG - SINUS RHYTHM PROBABLE LEFT ATRIAL ABNORMALITY NONSPECIFIC INTRAVENTRICULAR CONDUCTION DELAY CONSIDER OLD INFERIOR [place] : Confirmed by: Kwabena Higgins MD 08-Dec-2017 07:34:58
--- NOTE | 2017-12-08 07:36 | EKG REPORT ---
SEVERITY:- ABNORMAL ECG - SINUS RHYTHM NONSPECIFIC T ABNORMALITIES, DIFFUSE LEADS : Confirmed by: Kwabena Higgins MD 08-Dec-2017 07:35:13
[2017-12-09] MEDS: INSULIN REG, HUMAN 100 UNIT/ML 3 ML VIAL (PYX) SUBCUT PRN ×2 (00:17→17:08)
[2017-12-09] MEDS: KETOROLAC TROMETHAMINE INJ/PF 30 MG/1 ML SDV IV PRN ×2 (01:15→18:34)
[2017-12-09] MEDS: NORMAL SALINE 1000 ML 1,000 ML IV PRN ×2 (01:16→07:43)
[2017-12-09] MEDS: CEFAZOLIN 1 GM/D5W RTU 1 GM/50 ML RTUPB IV SCH ×3 (05:33→22:27)
[2017-12-09 06:19] LABS: INTERNATIONAL RATION (INR) 0.97; PROTHROMBIN TIME 13.4 SEC (11.4-15.4)
[2017-12-09 06:20] LABS: ABSOLUTE BASOPHILS # (AUTO) 0.1 10^3/uL (0.0-0.2); ABSOLUTE EOSINOPHILS # (AUTO) 0.1 10^3/uL (0.0-0.6); ABSOLUTE LYMPHOCYTES (AUTO) 2.2 10^3/uL (0.5-4.7); ABSOLUTE MONOCYTES (AUTO) 0.9 10^3/uL (0.1-1.4); ABSOLUTE NEUT (AUTO) 10.9 10^3/uL (1.7-8.2); BASOPHILS % (AUTO) 0.4 % (0-2); EOSINOPHILS % (AUTO) 0.4 % (0-6); HEMATOCRIT 33.3 % (36.0-47.0); LYMPHOCYTES % (AUTO) 15.5 % (13-45); MEAN CORPUSCULAR HEMOGLOBIN 33.8 pg (27.0-33.4); MEAN CORPUSCULAR HGB CONC 33.6 g/dL (32.0-36.0); MEAN CORPUSCULAR VOLUME 101 fl (80-97); MONOCYTES % (AUTO) 6.4 % (3-13); PARTIAL THROMBOPLASTIN TIME 34.2 SEC (23.5-35.8); PLATELET COUNT 257 10^3/uL (150-450); RED BLOOD COUNT 3.31 10^6/uL (3.72-5.28); RED CELL DISTRIBUTION WIDTH 13.4 % (11.5-14.0); SEGMENTED NEUTROPHILS % (AUTO) 77.3 % (42-78); TOTAL CELLS COUNTED % (AUTO) 100 %; WHITE BLOOD COUNT 14.1 10^3/uL (4.0-10.5)
[2017-12-09 06:32] LABS: HEMOGLOBIN 11.2 g/dL (12.0-15.5)
[2017-12-09 06:35] LABS: ALANINE AMINOTRANSFERASE 31 U/L (9-52); ALBUMIN 3.1 g/dL (3.5-5.0); ALKALINE PHOSPHATASE 83 U/L (38-126); ANION GAP 11 (5-19); ASPARTATE AMINO TRANSFERASE 16 U/L (14-36); BILIRUBIN,DIRECT 0.2 mg/dL (0.0-0.4); BILIRUBIN,TOTAL 0.4 mg/dL (0.2-1.3); BLOOD UREA NITROGEN 13 mg/dL (7-20); CALCIUM 8.7 mg/dL (8.4-10.2); CARBON DIOXIDE 25 mmol/L (22-30); CHLORIDE 107 mmol/L (98-107); GLUCOSE 137 mg/dL (75-110); POTASSIUM 3.5 mmol/L (3.6-5.0); SODIUM 143.1 mmol/L (137-145); TOTAL PROTEIN 5.7 g/dL (6.3-8.2)
[2017-12-09] MEDS ORDERED: METOPROLOL TARTRATE 25 MG TABLET PO ONE (10:00)
[2017-12-09] MEDS ORDERED: EPHEDRINE SULFATE INJ 50 MG/1 ML AMPULE ONE (10:03)
[2017-12-09] MEDS ORDERED: MIDAZOLAM 2 MG/2 ML INJ ONE (10:03)
[2017-12-09] MEDS ORDERED: PROPOFOL INJ 200 MG/20 ML VIAL IV ONE (10:04)
[2017-12-09] MEDS ORDERED: ACETAMINOPHEN 100 ML IV ONE (10:04)
[2017-12-09] MEDS ORDERED: FENTANYL CITRATE INJ/PF 100 MCG/2 ML AMPUL ONE ×2 (10:05)
[2017-12-09] MEDS ORDERED: BUPIVACAINE HCL 0.5%-EPI 1:200000 INJ/PF 30 ML VIAL ONE (10:13)
[2017-12-09] MEDS ORDERED: CEFAZOLIN INJ 1 GM VIAL ONE (11:18)
[2017-12-09] MEDS ORDERED: FENTANYL CITRATE INJ/PF 100 MCG/2 ML AMPUL IV PRN ×3 (12:22)
[2017-12-09] MEDS ORDERED: MEPERIDINE HCL/PF INJ 25 MG/1 ML DISP.SYRIN IV PRN (12:22)
[2017-12-09] MEDS ORDERED: DIPHENHYDRAMINE HCL 50 MG/ML VIAL IV PRN (12:22)
[2017-12-09] MEDS ORDERED: OXYCODONE-ACETAMINOPHEN 5-325 MG TABLET PO PRN ×3 (12:22→15:24)
[2017-12-09] MEDS ORDERED: PROMETHAZINE HCL INJ 25 MG/1 ML VIAL IV PRN ×2 (12:22)
[2017-12-09] MEDS ORDERED: ONDANSETRON HCL INJ/PF 4 MG/2 ML SDV IV PRN (15:24)
[2017-12-09] MEDS ORDERED: MORPHINE SULFATE 10 MG/ML INJ IV PRN (15:25)
--- NOTE | 2017-12-09 15:44 | OPERATIVE REPORT E ---
Operative Report NAME: MAGGIE RIDER : 1950 AGE: 67Y DATE OF SURGERY: 12/09/2017 ROOM: 321 PREOPERATIVE DIAGNOSIS: ACUTE CALCULOUS CHOLECYSTITIS. POSTOPERATIVE DIAGNOSIS: ACUTE ON CHRONIC CALCULOUS CHOLECYSTITIS. OPERATION: Laparoscopic cholecystectomy. SURGEON: RACHEL CHAUDHRY M.D. ANESTHESIA: General. INDICATIONS: This is a 67-year-old female with right upper quadrant pain for the past few days. Ultrasound revealed multiple gallstones. She was on Plavix and stopped taking it about 2 days ago. PROCEDURE: After adequate general anesthesia, patient was placed in supine position and the abdomen prepped and draped in the usual sterile fashion. An infraumbilical incision made and the fascia identified and grasped with Lydia clamps and divided between the 2 Lydia clamps. Finger dissection was then done from the fascia to the peritoneal cavity. There were a few adhesions that were lysed bluntly. Next, Jose A trocar was then inserted and CO2 insufflated to a pressure of 15 mmHg. Three other trocars were placed, a 12-mm into the subxiphoid, and two 5-mm into the right upper quadrant. The gallbladder was then identified and noted to be markedly distended and thickened. Unable to grasp it. It was then partially emptied of bile through a long needle. Bile was sent for culture. Next, the gallbladder tip was then grasped and pulled over the liver. The adhesions around the gallbladder were then bluntly lysed. A grasper with teeth was used to be able to grasp the gallbladder. The cystic duct was noted to be relatively short, and dissected and clipped with the hemoclips and divided between the distal hemoclips. Cystic artery identified and clipped and divided with the use of Harmonic hiren. Gallbladder was then dissected off the liver bed. The cystic area was quite difficult to initially have good exposure, and this was obtained by placement of another trocar at the midepigastric area, and using a Fine retractor. The gallbladder was then completely removed from the liver bed with the use of Harmonic hiren. Some bleeding was then controlled with the use of spatula cautery. A couple pieces of Surgicel were then placed on the liver bed prior to removal of the gallbladder. The gallbladder was then completely removed from the liver and placed in an Endo Bag. The gallbladder was noted to be markedly distended, with multiple stones. The fascia incision of the umbilicus was extended, and eventually was able to remove the gallbladder. Following this, a drain was then placed over the liver bed, pulling out through 1 of the trocar sites. Drain was then anchored to the skin with 3-0 nylon. Next, the fascial defect at the umbilicus was then closed with about 4 [id number] sutures of 0 Vicryl. All the skin incisions were then closed with running subcuticular 4-0 Vicryl. Sterile dressing was placed over the operative site. Needle, instrument and sponge counts were all correct. Estimated blood loss about 100 mL. Patient then brought back to the recovery room in satisfactory condition. DICTATING PHYSICIAN: RACHEL CHAUDHRY M.D. [id number] Y#: [id number] ID: [id number] JOB#: [id number] ACCT: [id number] cc:RACHEL CHAUDHRY M.D. >
[2017-12-09] MEDS ORDERED: ONDANSETRON HCL INJ/PF 4 MG/2 ML SDV ONE (18:03)
[2017-12-09] MEDS ORDERED: ROCURONIUM BROMIDE INJ 50 MG/5 ML VIAL IV ONE (18:03)
[2017-12-09] MEDS ORDERED: GLYCOPYRROLATE INJ 0.4 MG/2 ML VIAL ONE (18:03)
[2017-12-09] MEDS ORDERED: NEOSTIGMINE METHYLSULFATE 10 MG/10 ML VIAL ONE (18:03)
[2017-12-09] MEDS ORDERED: SUCCINYLCHOLINE CHLORIDE INJ 200 MG/10 ML VIAL ONE (18:03)
[2017-12-09] MEDS: METOPROLOL TARTRATE 25 MG TABLET PO SCH (22:25)
[2017-12-09] MEDS: ATORVASTATIN CALCIUM 80 MG TABLET PO SCH (22:25)
[2017-12-10] MEDS: INSULIN REG, HUMAN 100 UNIT/ML 3 ML VIAL (PYX) SUBCUT PRN ×2 (00:35→12:45)
[2017-12-10] MEDS: KETOROLAC TROMETHAMINE INJ/PF 30 MG/1 ML SDV IV PRN ×3 (00:36→20:28)
[2017-12-10] MEDS: NORMAL SALINE 1000 ML 1,000 ML IV PRN ×2 (01:54→12:39)
[2017-12-10] MEDS: CEFAZOLIN 1 GM/D5W RTU 1 GM/50 ML RTUPB IV SCH ×2 (06:56→13:55)
[2017-12-10] MEDS: AMLODIPINE BESYLATE 5 MG TABLET PO SCH (09:23)
[2017-12-10] MEDS: METFORMIN HCL 500 MG TABLET PO SCH (09:23)
[2017-12-10] MEDS: POTASSIUM CHLORIDE 10 MEQ TABLET.SA PO SCH (09:24)
[2017-12-10] MEDS: METOPROLOL TARTRATE 25 MG TABLET PO SCH ×2 (09:24→22:04)
[2017-12-10] MEDS: LOSARTAN POTASSIUM 50 MG TABLET PO SCH (09:25)
[2017-12-10] MEDS: HYDROCHLOROTHIAZIDE 25 MG TABLET PO SCH (09:25)
[2017-12-10] MEDS: GLIPIZIDE 5 MG TABLET PO SCH (09:25)
[2017-12-10] MEDS ORDERED: GLIPIZIDE PO SCH (10:00)
[2017-12-10] MEDS ORDERED: (PENDING PHARMACY ID) (Losartan/Hydrochlorothiazide [Losartan-Hctz 100-25 Mg Tab] 1 TAB) PO SCH (10:00)
[2017-12-10] MEDS ORDERED: METFORMIN HCL PO SCH (10:00)
[2017-12-10] MEDS ORDERED: CLOPIDOGREL BISULFATE 75 MG TABLET PO SCH (10:00)
[2017-12-10 15:54] LABS: ABSOLUTE MONOCYTES (AUTO) 0.8 10^3/uL (0.1-1.4); ABSOLUTE NEUT (AUTO) 13.6 10^3/uL (1.7-8.2); BASOPHILS % (AUTO) 0.3 % (0-2); EOSINOPHILS % (AUTO) 0.2 % (0-6); HEMATOCRIT 37.2 % (36.0-47.0); HEMOGLOBIN 12.2 g/dL (12.0-15.5); MEAN CORPUSCULAR HEMOGLOBIN 33.5 pg (27.0-33.4); MEAN CORPUSCULAR HGB CONC 32.7 g/dL (32.0-36.0); MEAN CORPUSCULAR VOLUME 103 fl (80-97); MONOCYTES % (AUTO) 4.7 % (3-13); PLATELET COUNT 320 10^3/uL (150-450); RED BLOOD COUNT 3.63 10^6/uL (3.72-5.28); RED CELL DISTRIBUTION WIDTH 13.1 % (11.5-14.0); SEGMENTED NEUTROPHILS % (AUTO) 82.8 % (42-78); TOTAL CELLS COUNTED % (AUTO) 100 %; WHITE BLOOD COUNT 16.5 10^3/uL (4.0-10.5)
--- NOTE | 2017-12-10 16:01 | EKG REPORT ---
SEVERITY:- ABNORMAL ECG - SINUS RHYTHM NONSPECIFIC INTRAVENTRICULAR CONDUCTION DELAY MINIMAL ST DEPRESSION, ANTEROLATERAL LEADS : Confirmed by: Kwabena Higgins MD 10-Dec-2017 16:00:37
[2017-12-10 16:06] LABS: ALANINE AMINOTRANSFERASE 51 U/L (9-52); ALBUMIN 3.7 g/dL (3.5-5.0); ALKALINE PHOSPHATASE 126 U/L (38-126); ANION GAP 16 (5-19); ASPARTATE AMINO TRANSFERASE 66 U/L (14-36); BILIRUBIN,DIRECT 0.4 mg/dL (0.0-0.4); BILIRUBIN,TOTAL 0.4 mg/dL (0.2-1.3); BLOOD UREA NITROGEN 13 mg/dL (7-20); CARBON DIOXIDE 23 mmol/L (22-30); CHLORIDE 107 mmol/L (98-107); GLUCOSE 160 mg/dL (75-110); POTASSIUM 3.3 mmol/L (3.6-5.0); SODIUM 145.6 mmol/L (137-145)
[2017-12-10] MEDS ORDERED: FUROSEMIDE INJ/PF 20 MG/2 ML SDV IV ONE (16:20)
[2017-12-10] MEDS ORDERED: IPRATROPIUM/ALBUTEROL 0.5-2.5 MG/3 ML AMPUL NEB PRN (16:21)
--- NOTE | 2017-12-10 17:16 | PDOC CONSULTATION ---
Consultation Consult Date: 12/10/17 Attending physician:: RACHEL CHAUDHRY Consult reason:: Shortness of breath History of Present Illness Admission Date/PCP: 12/07/17 21:01 JERAD GROVE DO History of Present Illness: MAGGIE RIDER is a 67 year old female Patient is seen in the emergency department the second time via ground rescue complaining of abdominal pain nausea, radiation to the right upper quadrant and back. She was seen yesterday in the emergency department where she was evaluated and found to have gallstones by gallbladder ultrasonography. She was given the option to be admitted but preferred to be discharged home. Returns to the emergency department with the above complaints. Last bowel movement yesterday, normal. She has been hurting for 2 days. She has previous episodes of abdominal pain. Never had a colonoscopy. Surgery was consulted and she was advised admission for definitive management. The patient is seen at request of surgery for evaluation and management of dyspnea. HPI is reviewed, the patient was admitted and placed on IV maintenance fluids at a rate of 175 mL/HR for the previous 2 days that she was in n.p.o. status. Per nursing, the patient began experiencing dyspnea while at rest that gradually worsened throughout the day. Her symptoms are improved when she is sitting high Ruvalcaba's or ambulatory (standing). Patient and daughter state that she has never had a COPD or CHF exacerbation; the patient has no known history of CHF. She denies fever, chills, chest pain. She does endorse a slight nonproductive cough and occasional palpitations when she is severely short of breath. The patient has just returned from radiology but was unable to lie flat for CTA of the chest. She has no leg edema or discomfort at this time. Past Medical History Cardiac Medical History: Reports: Myocardial Infarction - 2010 with 3 stents, Hyperlipidema, Hypertension Endocrine Medical History: Reports: Diabetes Mellitus Type 2 Past Surgical History Past Surgical History: Reports: Cardiac Catheterization - stent X3, Orthopedic Surgery - right knee, Other Social History Smoking Status: Current Some Day Smoker Cigarettes Packs Per Day: 0.2 Number of Years Smokin Frequency of Alcohol Use: Occasional Hx Recreational Drug Use: No Drugs: None Hx Prescription Drug Abuse: No - Advance Directive Resuscitation Status: Full Code Family History Family History: Reviewed & Not Pertinent Parental Family History Reviewed: Yes Children Family History Reviewed: Yes Sibling(s) Family History Reviewed.: Yes Medication/Allergy Home Medications: Amlodipine Besylate [Norvasc 5 mg Tablet] 5 mg PO DAILY 12/07/17 Atorvastatin Calcium [Lipitor 80 mg Tablet] 80 mg PO QHS 12/07/17 Clopidogrel Bisulfate [Plavix 75 mg Tablet] 75 mg PO DAILY 12/07/17 Glipizide/Metformin HCl [Glipizide-Metformin 5-500 mg] 1 tab PO DAILY 12/07/17 Losartan/Hydrochlorothiazide [Losartan-Hctz 100-25 mg Tab] 1 tab PO DAILY Metoprolol Tartrate [Lopressor 25 mg Tablet] 25 mg PO Q12 12/07/17 Potassium Chloride [Klor-Con 10 Meq Tablet.sa] 10 meq PO DAILY 12/07/17 Allergies/Adverse Reactions: erythromycin base [Erythromycin Base] Allergy (Verified 12/07/17 23:52) Review of Systems Constitutional: ABSENT: chills, fever(s), headache(s), weight gain, weight loss Eyes: ABSENT: visual disturbances Ears: ABSENT: hearing changes Cardiovascular: PRESENT: orthropnea, palpitations. ABSENT: chest pain, dyspnea on exertion, edema Respiratory: PRESENT: cough. ABSENT: hemoptysis Gastrointestinal: PRESENT: abdominal pain. ABSENT: constipation, diarrhea, hematemesis, hematochezia, nausea, vomiting Genitourinary: ABSENT: dysuria, hematuria Musculoskeletal: ABSENT: joint swelling Integumentary: ABSENT: rash, wounds Neurological: ABSENT: abnormal gait, abnormal speech, confusion, dizziness, focal weakness, syncope Psychiatric: ABSENT: anxiety, depression, homidical ideation, suicidal ideation Endocrine: ABSENT: cold intolerance, heat intolerance, polydipsia, polyuria Hematologic/Lymphatic: ABSENT: easy bleeding, easy bruising Physical Exam Vital Signs: Temp Pulse Resp BP Pulse Ox 97.9 F 75 17 140/51 H 100 12/10/17 12:13 12/10/17 14:00 12/10/17 12:13 12/10/17 12:13 12/10/17 12:13 Intake & Output 12/09/17 12/10/17 12/11/17 06:59 06:59 06:59 Intake Total 3601 5194 Output Total 450 1200 Balance 3151 3994 Weight 138.6 kg 141.6 kg General appearance: PRESENT: cooperative - Pleasant, mild distress, morbidly obese, well-developed, well-nourished Head exam: PRESENT: atraumatic, normocephalic Eye exam: PRESENT: conjunctiva pink, EOMI, PERRLA. ABSENT: scleral icterus Ear exam: PRESENT: normal external ear exam Mouth exam: PRESENT: moist, tongue midline Neck exam: ABSENT: carotid bruit, JVD, lymphadenopathy, thyromegaly Respiratory exam: PRESENT: clear to auscultation roro, decreased breath sounds - Diminished throughout secondary to body habitus and poor inspiratory effort. No adventitious breath sounds heard., symmetrical, tachypnea - Very shallow, unlabored. ABSENT: rales, rhonchi, wheezes Cardiovascular exam: PRESENT: RRR, +S1, +S2. ABSENT: diastolic murmur, rubs, systolic murmur, tachycardia Pulses: PRESENT: normal dorsalis pedis pul Vascular exam: PRESENT: normal capillary refill GI/Abdominal exam: PRESENT: normal bowel sounds, soft, tenderness. ABSENT: distended, guarding, mass, organolmegaly, rebound Rectal exam: PRESENT: deferred Extremities exam: PRESENT: full ROM. ABSENT: calf tenderness, clubbing, pedal edema Neurological exam: PRESENT: alert, awake, oriented to person, oriented to place , oriented to time, oriented to situation, CN II-XII grossly intact. ABSENT: motor sensory deficit Psychiatric exam: PRESENT: appropriate affect, normal mood. ABSENT: homicidal ideation, suicidal ideation Skin exam: PRESENT: dry, intact, warm. ABSENT: cyanosis, rash Results Laboratory Results: 12/10/17 15:29 12/10/17 15:29 12/10/17 12/10/17 15:29 15:29 WBC 16.5 H RBC 3.63 L Hgb 12.2 Hct 37.2 MCV 103 H MCH 33.5 H MCHC 32.7 RDW 13.1 Plt Count 320 Seg Neutrophils % 82.8 H Lymphocytes % 12.0 L Monocytes % 4.7 Eosinophils % 0.2 Basophils % 0.3 Absolute Neutrophils 13.6 H Absolute Lymphocytes 2.0 Absolute Monocytes 0.8 Absolute Eosinophils 0.0 Absolute Basophils 0.0 Sodium 145.6 H Potassium 3.3 L Chloride 107 Carbon Dioxide 23 Anion Gap 16 BUN 13 Creatinine 0.45 L Est GFR ( Amer) > 60 Est GFR (Non-Af Amer) > 60 Glucose 160 H Calcium 9.0 Total Bilirubin 0.4 AST 66 H ALT 51 Alkaline Phosphatase 126 Total Protein 7.0 Albumin 3.7 12/10/17 15:29 NT-Pro-B Natriuret Pep 485 Impressions: Chest X-Ray 12/07/17 20:53 IMPRESSION: LOW LUNG VOLUMES. NO SIGNIFICANT RADIOGRAPHIC FINDING IN THE CHEST. Assessment & Plan - Diagnosis (1) Dyspnea Qualifiers: Dyspnea type: orthopnea Qualified Code(s): R06.01 - Orthopnea Is this a current diagnosis for this admission?: Yes Plan: Consulted by surgery for complaint of orthopnea beginning today; patient is postop day 2 from cholecystectomy. Per nursing and patient, her patient's are significantly improved when sitting high Ruvalcaba's or standing upright. She has had a slight nonproductive cough today. She denies chest pain, and calf swelling or tenderness. She does endorse slight palpitations when severely dyspneic. The patient has received significant IV fluids during her perioperative. She is approximately 7 L positive. ProBNP is slightly elevated at 485; though must be viewed cautiously given her BMI. Discontinue IV fluids. Lasix 20 mg IV 1. Ortega catheter is placed for strict I's and O's. No adventitious lung sounds were heard, although, she has significant body habitus and poor respiratory effort. The patient is being placed on Zosyn for a bladder culture results; antibiotics per surgery. This would cover some respiratory jess; no indication at this time for further antibiotic today. The patient was unable to tolerate lying down for CTA; I have low suspicion of pulmonary embolus as the patient is not tachycardic is maintaining oxygen saturations on room air (currently on 2 L by nasal cannula for patient comfort) , blood pressures are normal, and there is no evidence of DVT. May also be related to atelectasis given the patient's immobility and body habitus. Incentive spirometry to bedside. Omental oxygen as needed to maintain oxygen saturations greater than 80%. BiPAP nightly and as needed. Schedule duo nebs and as needed nebulizer treatments. As there is no wheezing, there is no indication of COPD exacerbation, therefore will hold on steroids at this time. (2) Cholecystitis with cholelithiasis Qualifiers: Cholelithiasis location: gallbladder Cholecystitis acuity: acute and chronic Biliary obstruction: without biliary obstruction Qualified Code(s): K80.12 - Calculus of gallbladder with acute and chronic cholecystitis without obstruction Is this a current diagnosis for this admission?: Yes Plan: Primary plan per surgery now status post cholecystectomy. Antibiotics and pain management per surgery team. (3) Diabetes mellitus Qualifiers: Diabetes mellitus type: type 2 Diabetes mellitus remote computer terminal operator insulin use: with remote computer terminal operator use Diabetes mellitus complication status: without complication Qualified Code(s): E11.9 - Type 2 diabetes mellitus without complications; Z79.4 - care home (current) use of insulin; Z79.4 - care home ( current) use of insulin; Z79.4 - care home (current) use of insulin; Z79.4 - adjunct faculty for medical terminology (current) use of insulin Is this a current diagnosis for this admission?: Yes Plan: Blood glucose appears to have been well controlled with current management. The patient remains on a clear liquid diet. Accu-Cheks before meals and at bedtime with Humalog for sliding scale coverage. Her home medications, glipizide and Metformin, have been continued. (4) History of myocardial infarction Is this a current diagnosis for this admission?: Yes (5) Hypertension Qualifiers: Hypertension type: essential hypertension Qualified Code(s): I10 - Essential (primary) hypertension Is this a current diagnosis for this admission?: Yes (6) Morbid obesity with BMI of 50.0-59.9, adult Is this a current diagnosis for this admission?: Yes Plan: The patient's is certainly contributing to her respiratory dysfunction. She is likely having some atelectasis given her body habitus and immobility. She may also have a component of sleep apnea. Remaining plan as above. (7) Smoker Is this a current diagnosis for this admission?: Yes Plan: The patient has a 20 year pack history. Monitor for evidence of COPD exacerbation; patient denies previous diagnosis of COPD. Smoking cessation is encouraged and nicotine replacement therapy is offered. - Time Time Spent: 50 to 70 Minutes Medications reviewed and adjusted accordingly: Yes
--- NOTE | 2017-12-10 17:20 | RADIOLOGY REPORT (SQ) ---
EXAM DESCRIPTION: CHEST 2 VIEWS COMPLETED DATE/TIME: 12/10/2017 5:11 pm REASON FOR STUDY: SOB COMPARISON: November 2016 EXAM PARAMETERS: NUMBER OF VIEWS: two views TECHNIQUE: Digital Frontal and Lateral radiographic views of the chest acquired. RADIATION DOSE: NA LIMITATIONS: Study is limited somewhat due to the patient's body habitus. Patient has made a shallow inspiration. FINDINGS: LUNGS AND PLEURA: There is increased density in the left retrocardiac area which could rep resent atelectatic changes or a basilar infiltrate. Remaining lung gutierres are clear. MEDIASTINUM AND HILAR STRUCTURES: No masses or contour abnormalities. HEART AND VASCULAR STRUCTURES: There is some prominence of the cardiac silhouette presumably related to the shallow inspiration. A degree of pulmonary vascular congestion is seen which may also be rela ashleigh to the shallow inspiration. BONES: No acute findings. HARDWARE: None in the chest. OTHER: No other significant finding. IMPRESSION: Increased density in the left retrocardiac area which could represent atelectatic change s or basilar infiltrate. Remaining lung gutierres are clear. Other findings as noted above TECHNICAL DOCUMENTATION: JOB ID: [id number] [employer]- All Rights Reserved Reading location - IP/workstation name: [email or web address]
[2017-12-10] MEDS ORDERED: PIPERACILLIN SODIUM/TAZOBACTAM 3.375 GM in NORMAL SALINE 100 ML IV SCH (18:00)
[2017-12-10] MEDS: PIPERACILLIN SODIUM/TAZOBACTAM 3.375 GM in NORMAL SALINE 100 ML IV SCH (18:24)
[2017-12-10] MEDS: ATORVASTATIN CALCIUM 80 MG TABLET PO SCH (22:04)
--- NOTE | 2017-12-10 22:27 | PDOC PROGRESS REPORT ---
Subjective Progress Note for:: 12/10/17 Subjective:: Dyspnea Reason For Visit: CHOLELITHIASIS WITH CHOLECYSTITIS Physical Exam Vital Signs: Temp Pulse Resp BP Pulse Ox 98.7 F 100 40 H 142/73 H 100 12/10/17 19:44 12/10/17 19:44 12/10/17 19:44 12/10/17 19:44 12/10/17 19:44 Intake & Output 12/09/17 12/10/17 12/11/17 06:59 06:59 06:59 Intake Total 3601 5194 1000 Output Total 450 1200 635 Balance 3151 3994 365 Weight 138.6 kg 141.6 kg Exam: Abd is soft and non tender . OSVALDO drain 20 ccs. Appears SOB Results Laboratory Results: 12/10/17 15:29 12/10/17 15:29 12/10/17 12/10/17 15:29 15:29 WBC 16.5 H RBC 3.63 L Hgb 12.2 Hct 37.2 MCV 103 H MCH 33.5 H MCHC 32.7 RDW 13.1 Plt Count 320 Seg Neutrophils % 82.8 H Lymphocytes % 12.0 L Monocytes % 4.7 Eosinophils % 0.2 Basophils % 0.3 Absolute Neutrophils 13.6 H Absolute Lymphocytes 2.0 Absolute Monocytes 0.8 Absolute Eosinophils 0.0 Absolute Basophils 0.0 Sodium 145.6 H Potassium 3.3 L Chloride 107 Carbon Dioxide 23 Anion Gap 16 BUN 13 Creatinine 0.45 L Est GFR ( Amer) > 60 Est GFR (Non-Af Amer) > 60 Glucose 160 H Calcium 9.0 Total Bilirubin 0.4 AST 66 H ALT 51 Alkaline Phosphatase 126 Total Protein 7.0 Albumin 3.7 12/10/17 15:29 NT-Pro-B Natriuret Pep 485 Impressions: Chest X-Ray 12/10/17 00:00 IMPRESSION: Increased density in the left retrocardiac area which could represent atelectatic changes or basilar infiltrate. Remaining lung gutierres are clear. Other findings as noted above Assessment & Plan - Diagnosis (1) Cholecystitis with cholelithiasis Qualifiers: Cholelithiasis location: gallbladder Cholecystitis acuity: acute and chronic Biliary obstruction: without biliary obstruction Qualified Code(s): K80.12 - Calculus of gallbladder with acute and chronic cholecystitis without obstruction Is this a current diagnosis for this admission?: Yes - Time Time Spent with patient: 15-24 minutes - Plan Summary Plan Summary: Consulted hospitalist for the dyspnea. CXRAY atelectasis vs basal infiltrate.She is a smoker. Agree with continued antibiotics
[2017-12-10] MEDS: IPRATROPIUM/ALBUTEROL 0.5-2.5 MG/3 ML AMPUL NEB SCH (23:58)
[2017-12-11] MEDS: PIPERACILLIN SODIUM/TAZOBACTAM 3.375 GM in NORMAL SALINE 100 ML IV SCH ×5 (00:06→23:39)
[2017-12-11] MEDS: INSULIN REG, HUMAN 100 UNIT/ML 3 ML VIAL (PYX) SUBCUT PRN ×3 (00:52→13:28)
[2017-12-11] MEDS: KETOROLAC TROMETHAMINE INJ/PF 30 MG/1 ML SDV IV PRN (04:04)
[2017-12-11] MEDS: IPRATROPIUM/ALBUTEROL 0.5-2.5 MG/3 ML AMPUL NEB SCH ×2 (08:31→16:46)
[2017-12-11] MEDS ORDERED: FUROSEMIDE INJ/PF 20 MG/2 ML SDV IV ONE (08:44)
[2017-12-11] MEDS: METOPROLOL TARTRATE 25 MG TABLET PO SCH ×2 (09:18→22:32)
[2017-12-11] MEDS: METFORMIN HCL 500 MG TABLET PO SCH (09:18)
[2017-12-11] MEDS: LIDOCAINE 5% (700 MG) TRANSDERMAL ADH..PATCH TP SCH (09:18)
[2017-12-11] MEDS: POTASSIUM CHLORIDE 10 MEQ TABLET.SA PO SCH (09:19)
[2017-12-11] MEDS: HYDROCHLOROTHIAZIDE 25 MG TABLET PO SCH (09:19)
[2017-12-11] MEDS: LOSARTAN POTASSIUM 50 MG TABLET PO SCH (09:19)
[2017-12-11] MEDS: GLIPIZIDE 5 MG TABLET PO SCH (09:19)
[2017-12-11] MEDS: AMLODIPINE BESYLATE 5 MG TABLET PO SCH (09:20)
[2017-12-11] MEDS ORDERED: VANCOMYCIN HCL INJ 1000 MG VIAL IV ONE (11:24)
[2017-12-11] MEDS: TRAMADOL HCL 50 MG TABLET PO PRN ×2 (11:45→22:32)
[2017-12-11 13:07] LABS: APPEARANCE,URINE CLEAR; BILIRUBIN,URINE NEGATIVE (NEGATIVE); COLOR,URINE YELLOW; GLUCOSE, URINE NEGATIVE (NEGATIVE); KETONES,URINE NEGATIVE (NEGATIVE); LEUKOCYTE ESTERASE,URINE TRACE (NEGATIVE); NITRITE,URINE NEGATIVE (NEGATIVE); PROTEIN,URINE NEGATIVE (NEGATIVE); URINE SPECIFIC GRAVITY 1.011; UROBILINOGEN,URINE NEGATIVE mg/dL (<2.0)
[2017-12-11] MEDS ORDERED: VANCOMYCIN HCL 0 MG in DEXTROSE 5%-WATER 250 ML IV NR (13:15)
[2017-12-11] MEDS: POTASSIUM CHLORIDE 20 MEQ/50 ML RTU IV SCH ×2 (14:46→17:50)
--- NOTE | 2017-12-11 16:26 | PDOC PROGRESS REPORT ---
Subjective Progress Note for:: 12/11/17 Subjective:: The patient is a 67-year-old morbidly obese female with a past medical history of IA with 3 stents in 2010, hyperlipidemia, hypertension, diabetes mellitus type 2 who is a patient of the hospitalist service and now postop day 2 after cholecystectomy. The hospitalist service was consulted for evaluation and management of dyspnea. The patient is seen on morning rounds. She is found sitting upright in chair on supplemental oxygen at 2 L/min. She states that she is feeling much better today and she is very appreciative of the quick improvement in her dyspnea. She states that she is unable to lay down secondary to chronic back pain but otherwise feels that her breathing is comfortable when she is lying down. She denies fever, chills, chest pain, palpitations, cough, dyspnea and orthopnea at present. Per nursing, the patient has had significant amount of diuresis; she has put out nearly 3 L overnight. They have no new questions or concerns. Reason For Visit: CHOLELITHIASIS WITH CHOLECYSTITIS Physical Exam Vital Signs: Temp Pulse Resp BP Pulse Ox 97.6 F 75 20 130/53 H 100 12/11/17 11:55 12/11/17 14:00 12/11/17 11:55 12/11/17 11:55 12/11/17 11:55 Intake & Output 12/10/17 12/11/17 12/12/17 06:59 06:59 06:59 Intake Total 5194 1710 200 Output Total 1200 1635 700 Balance 3994 75 -500 Weight 141.6 kg 140.5 kg General appearance: PRESENT: no acute distress, morbidly obese, well-developed, well-nourished Head exam: PRESENT: atraumatic, normocephalic Eye exam: PRESENT: conjunctiva pink, EOMI, PERRLA. ABSENT: scleral icterus Ear exam: PRESENT: normal external ear exam Mouth exam: PRESENT: moist, tongue midline Neck exam: ABSENT: carotid bruit, JVD, lymphadenopathy, thyromegaly Respiratory exam: PRESENT: decreased breath sounds - Throughout secondary to body habitus and poor inspiratory effort, symmetrical, unlabored. ABSENT: rales , rhonchi, tachypnea, wheezes Cardiovascular exam: PRESENT: RRR, +S1, +S2. ABSENT: diastolic murmur, rubs, systolic murmur Pulses: PRESENT: normal dorsalis pedis pul Vascular exam: PRESENT: normal capillary refill GI/Abdominal exam: PRESENT: distended - Body habitus, normal bowel sounds, soft , tenderness. ABSENT: guarding, mass, organolmegaly, rebound Rectal exam: PRESENT: deferred Extremities exam: PRESENT: full ROM. ABSENT: calf tenderness, clubbing, pedal edema Neurological exam: PRESENT: alert, awake, oriented to person, oriented to place , oriented to time, oriented to situation, CN II-XII grossly intact. ABSENT: motor sensory deficit Psychiatric exam: PRESENT: appropriate affect, normal mood. ABSENT: homicidal ideation, suicidal ideation Skin exam: PRESENT: dry, intact, warm. ABSENT: cyanosis, rash Results Laboratory Results: 12/10/17 15:29 12/10/17 15:29 12/11/17 12:30 Urine Color YELLOW Urine Appearance CLEAR Urine pH 6.0 Ur Specific Senath 1.011 Urine Protein NEGATIVE Urine Glucose (UA) NEGATIVE Urine Ketones NEGATIVE Urine Blood MODERATE H Urine Nitrite NEGATIVE Ur Leukocyte Esterase TRACE H Urine WBC (Auto) 5 Urine RBC (Auto) 35 12/10/17 15:29 NT-Pro-B Natriuret Pep 485 Impressions: Chest X-Ray 12/10/17 00:00 IMPRESSION: Increased density in the left retrocardiac area which could represent atelectatic changes or basilar infiltrate. Remaining lung gutierres are clear. Other findings as noted above Assessment & Plan - Diagnosis (1) Dyspnea Qualifiers: Dyspnea type: orthopnea Qualified Code(s): R06.01 - Orthopnea Is this a current diagnosis for this admission?: Yes Plan: Improved; most likely multifactorial as a result of atelectasis and fluid volume overload. Chest x-ray demonstrates bibasilar atelectasis versus infiltrates. CT of the chest is pending; though I am less inclined today to believe that the patient is suffering from a pulmonary embolus as her symptoms are already improving. The patient has received significant IV fluids during her perioperative period. ProBNP is slightly elevated at 485; though must be viewed cautiously given her BMI. The IV fluids were discontinued. The patient had a large amount of diuresis following Lasix 20 mg IV 1 last night. Will repeat lasix dose again today. Ortega catheter is placed for strict I's and O's. Incentive spirometry to bedside. Supplemental oxygen as needed to maintain oxygen saturations greater than 80%. BiPAP nightly and as needed; she did not require BiPAP overnight. Schedule duo nebs and as needed nebulizer treatments. As there is no wheezing, there is no indication of COPD exacerbation, therefore will hold on steroids at this time. (2) Diabetes mellitus Qualifiers: Diabetes mellitus type: type 2 Diabetes mellitus termite technician insulin use: with halfway use Diabetes mellitus complication status: without complication Qualified Code(s): E11.9 - Type 2 diabetes mellitus without complications; Z79.4 - exterminator (current) use of insulin; Z79.4 - care home ( current) use of insulin; Z79.4 - care home (current) use of insulin; Z79.4 - exterminator (current) use of insulin Is this a current diagnosis for this admission?: Yes Plan: Blood glucose appears to have been well controlled with current management. The patient remains on a clear liquid diet. Accu-Cheks before meals and at bedtime with Humalog for sliding scale coverage. Glipizide is continued. Will hold metformin for planned contrasted studies. (3) Hypertension Qualifiers: Hypertension type: essential hypertension Qualified Code(s): I10 - Essential (primary) hypertension Is this a current diagnosis for this admission?: Yes Plan: The patient's home medication regimen is continued with adequate blood pressure control. (4) Morbid obesity with BMI of 50.0-59.9, adult Is this a current diagnosis for this admission?: Yes Plan: The patient's is certainly contributing to her respiratory dysfunction. She is likely having some atelectasis given her body habitus and immobility. She may also have a component of sleep apnea. Remaining plan as above. (5) Smoker Is this a current diagnosis for this admission?: Yes Plan: The patient has a 20 year pack history. Monitor for evidence of COPD exacerbation; patient denies previous diagnosis of COPD. Smoking cessation is encouraged and nicotine replacement therapy is offered. (6) Cholecystitis with cholelithiasis Qualifiers: Cholelithiasis location: gallbladder Cholecystitis acuity: acute and chronic Biliary obstruction: without biliary obstruction Qualified Code(s): K80.12 - Calculus of gallbladder with acute and chronic cholecystitis without obstruction Is this a current diagnosis for this admission?: Yes Plan: Primary plan per surgery now status post cholecystectomy. Antibiotics and pain management per surgery team. (7) History of myocardial infarction Is this a current diagnosis for this admission?: Yes - Time Time Spent with patient: 25-34 minutes Medications reviewed and adjusted accordingly: Yes
--- NOTE | 2017-12-11 16:47 | RADIOLOGY REPORT (SQ) ---
EXAM DESCRIPTION: CTA CHEST COMPLETED DATE/TIME: 12/11/2017 4:33 pm REASON FOR STUDY: dyspnea; post op. PE vs PNA? COMPARISON: Chest x-ray dated 12/10/2017 TECHNIQUE: CT scan of the chest performed using helical scanning technique with dynamic intravenous contrast injection. Images reviewed with lung, soft tissue and bone windows. Reconstructed coronal and sagittal MPR images reviewed. Additional 3 dimensional post-processing performed to develop Maximal Intensity Projection images (AL P). All images stored on PACS. All CT scanners at this facility use dose modulation, iterative reconstruction, and/or weight based d osing when appropriate to reduce radiation dose to as low as reasonably achievable (ALARA). [facility]: Dose Right [facility]: CareDose [facility]: Dose Right [facility]: Teradose 4D [facility]: PeekYou CONTRAST TYPE AND DOSE: contrast/concentration: Isovue 370.00 mg/ml; Total Contrast Delivered: 79.0 ml; Total Saline Delivered: 110.0 ml Contrast bolus optimized for the pulmonary arteries. Not diagnostic for the aorta. RENAL FUNCTION: Creatinine 0.45 RADIATION DOSE: CT Rad equipment meets quality standard of care and radiation dose reduction techniq ues were employed. CTDIvol: 15.4 - 42.2 mGy. DLP: 509 mGy-cm. . LIMITATIONS: There is suboptimal opacification of the pulmonary arteries. FINDINGS: LUNGS AND PLEURA: Patchy bibasilar airspace consolidation is identified which could repres ent atelectatic changes or pneumonic infiltrates. No pleural effusions are identified. No pneumotho rax is seen. AORTA AND GREAT VESSELS: No aneurysm. Contrast bolus not optimized for the aorta. HEART: No pericardial effusion. No significant coronary artery calcifications. PULMONARY ARTERIES: No emboli visualized in the main pulmonary arteries or the segmental branches. HILAR AND MEDIASTINAL STRUCTURES: No identified masses or abnormal nodes. HARDWARE: None in the chest. UPPER ABDOMEN: No significant findings. Limited exam. THYROID AND OTHER SOFT TISSUES: No masses. No adenopathy. BONES: No acute or significant finding. 3D MIPS: Confirm above findings. OTHER: No other significant finding. IMPRESSION: There is suboptimal opacification of the pulmonary arteries. No definite evidence for p ulmonary embolic disease is seen. Bibasilar airspace consolidation as noted above which could repres ent atelectatic changes or pneumonic infiltrates. No pleural effusions are identified. Other findin gs as noted above COMMENT: Quality ID # [id number]: Final reports with documentation of one or more dose reduction techniques (e.g., Automated exposure control, adjustment of the mA and/or kV according to patient size, use of iterative reconstruction technique) TECHNICAL DOCUMENTATION: JOB ID: [id number] [employer]- All Rights Reserved Reading location - IP/workstation name: [email or web address]
[2017-12-11] MEDS: VANCOMYCIN HCL 1,500 MG in DEXTROSE 5%-WATER 250 ML IV SCH (18:57)
[2017-12-11 21:53] LABS: ANION GAP 12 (5-19); BLOOD UREA NITROGEN 9 mg/dL (7-20); CALCIUM 8.6 mg/dL (8.4-10.2); CARBON DIOXIDE 27 mmol/L (22-30); CHLORIDE 104 mmol/L (98-107); GLUCOSE 147 mg/dL (75-110); POTASSIUM 3.3 mmol/L (3.6-5.0); SODIUM 142.7 mmol/L (137-145)
[2017-12-11] MEDS: ATORVASTATIN CALCIUM 80 MG TABLET PO SCH (22:32)
[2017-12-12] MEDS: IPRATROPIUM/ALBUTEROL 0.5-2.5 MG/3 ML AMPUL NEB SCH ×3 (00:26→23:44)
[2017-12-12] MEDS: POTASSIUM CHLORIDE 20 MEQ/50 ML RTU IV SCH ×2 (00:39→03:06)
[2017-12-12 05:12] LABS: ABSOLUTE BASOPHILS # (AUTO) 0.1 10^3/uL (0.0-0.2); ABSOLUTE EOSINOPHILS # (AUTO) 0.1 10^3/uL (0.0-0.6); ABSOLUTE LYMPHOCYTES (AUTO) 2.1 10^3/uL (0.5-4.7); ABSOLUTE MONOCYTES (AUTO) 0.8 10^3/uL (0.1-1.4); BASOPHILS % (AUTO) 0.7 % (0-2); EOSINOPHILS % (AUTO) 1.6 % (0-6); HEMATOCRIT 32.3 % (36.0-47.0); HEMOGLOBIN 10.9 g/dL (12.0-15.5); LYMPHOCYTES % (AUTO) 23.5 % (13-45); MEAN CORPUSCULAR HEMOGLOBIN 33.9 pg (27.0-33.4); MEAN CORPUSCULAR HGB CONC 33.7 g/dL (32.0-36.0); MEAN CORPUSCULAR VOLUME 101 fl (80-97); MONOCYTES % (AUTO) 8.6 % (3-13); PLATELET COUNT 326 10^3/uL (150-450); RED BLOOD COUNT 3.21 10^6/uL (3.72-5.28); RED CELL DISTRIBUTION WIDTH 13.1 % (11.5-14.0); SEGMENTED NEUTROPHILS % (AUTO) 65.6 % (42-78); TOTAL CELLS COUNTED % (AUTO) 100 %; WHITE BLOOD COUNT 9.1 10^3/uL (4.0-10.5)
[2017-12-12 05:27] LABS: ANION GAP 9 (5-19); BLOOD UREA NITROGEN 10 mg/dL (7-20); CALCIUM 8.7 mg/dL (8.4-10.2); CARBON DIOXIDE 29 mmol/L (22-30); CHLORIDE 106 mmol/L (98-107); GLUCOSE 158 mg/dL (75-110); POTASSIUM 3.6 mmol/L (3.6-5.0); SODIUM 143.6 mmol/L (137-145)
[2017-12-12] MEDS: PIPERACILLIN SODIUM/TAZOBACTAM 3.375 GM in NORMAL SALINE 100 ML IV SCH ×2 (05:32→10:51)
[2017-12-12] MEDS: VANCOMYCIN HCL 1,500 MG in DEXTROSE 5%-WATER 250 ML IV SCH ×2 (06:22→17:09)
[2017-12-12] MEDS: FUROSEMIDE INJ/PF 40 MG/4 ML SDV IV SCH ×2 (10:46→22:17)
[2017-12-12] MEDS: LOSARTAN POTASSIUM 50 MG TABLET PO SCH (10:47)
[2017-12-12] MEDS: METOPROLOL TARTRATE 25 MG TABLET PO SCH ×2 (10:47→22:17)
[2017-12-12] MEDS: HYDROCHLOROTHIAZIDE 25 MG TABLET PO SCH (10:47)
[2017-12-12] MEDS: GLIPIZIDE 5 MG TABLET PO SCH (10:48)
[2017-12-12] MEDS: POTASSIUM CHLORIDE 10 MEQ TABLET.SA PO SCH (10:48)
[2017-12-12] MEDS: AMLODIPINE BESYLATE 5 MG TABLET PO SCH (10:48)
[2017-12-12] MEDS: LIDOCAINE 5% (700 MG) TRANSDERMAL ADH..PATCH TP SCH (10:49)
--- NOTE | 2017-12-12 11:08 | PDOC PROGRESS REPORT ---
Subjective Progress Note for:: 12/12/17 Subjective:: The patient is a 67-year-old morbidly obese female with a past medical history of [place] with 3 stents in 2010, hyperlipidemia, hypertension, diabetes mellitus type 2 who is a patient of the hospitalist service and now postop cholecystectomy. The hospitalist service was consulted for evaluation and management of dyspnea. The patient is seen on morning rounds with her daughter present. She is found resting in bed comfortably on supplemental oxygen at 2 L/min. She states that she is unchanged from yesterday; continues to have slight orthopnea, though this is much improved from previously. She denies fever, chills, chest pain, palpitations, cough. They have no new questions or concerns. Reason For Visit: CHOLELITHIASIS WITH CHOLECYSTITIS Physical Exam Vital Signs: Temp Pulse Resp BP Pulse Ox 98.0 F 77 20 129/50 H 100 12/12/17 07:26 12/12/17 07:26 12/12/17 07:26 12/12/17 07:26 12/12/17 07:26 Intake & Output 12/11/17 12/12/17 12/13/17 06:59 06:59 06:59 Intake Total 1710 3432 Output Total 1635 2750 Balance 75 682 Weight 140.5 kg 140.8 kg General appearance: PRESENT: no acute distress, morbidly obese, well-developed, well-nourished Head exam: PRESENT: atraumatic, normocephalic Eye exam: PRESENT: conjunctiva pink, EOMI, PERRLA. ABSENT: scleral icterus Ear exam: PRESENT: normal external ear exam Mouth exam: PRESENT: moist, tongue midline Neck exam: ABSENT: carotid bruit, JVD, lymphadenopathy, thyromegaly Respiratory exam: PRESENT: crackles - bibasilar, decreased breath sounds - Bibasilar; improved from yesterday, symmetrical, unlabored. ABSENT: rales, rhonchi, wheezes Cardiovascular exam: PRESENT: RRR, +S1, +S2. ABSENT: diastolic murmur, rubs, systolic murmur Pulses: PRESENT: normal dorsalis pedis pul Vascular exam: PRESENT: normal capillary refill GI/Abdominal exam: PRESENT: normal bowel sounds, soft. ABSENT: distended, guarding, mass, organolmegaly, rebound, tenderness Rectal exam: PRESENT: deferred Extremities exam: PRESENT: full ROM. ABSENT: calf tenderness, clubbing, pedal edema Neurological exam: PRESENT: alert, awake, oriented to person, oriented to place , oriented to time, oriented to situation, CN II-XII grossly intact. ABSENT: motor sensory deficit Psychiatric exam: PRESENT: appropriate affect, normal mood. ABSENT: homicidal ideation, suicidal ideation Skin exam: PRESENT: dry, intact, warm. ABSENT: cyanosis, rash Results Laboratory Results: 12/12/17 04:52 12/12/17 04:52 12/11/17 12/11/17 12/12/17 12:30 21:28 04:52 WBC 9.1 RBC 3.21 L Hgb 10.9 L Hct 32.3 L MCV 101 H MCH 33.9 H MCHC 33.7 RDW 13.1 Plt Count 326 Seg Neutrophils % 65.6 Lymphocytes % 23.5 Monocytes % 8.6 Eosinophils % 1.6 Basophils % 0.7 Absolute Neutrophils 6.0 Absolute Lymphocytes 2.1 Absolute Monocytes 0.8 Absolute Eosinophils 0.1 Absolute Basophils 0.1 Sodium 142.7 Potassium 3.3 L Chloride 104 Carbon Dioxide 27 Anion Gap 12 BUN 9 Creatinine 0.41 L Est GFR ( Amer) > 60 Est GFR (Non-Af Amer) > 60 Glucose 147 H Calcium 8.6 Urine Color YELLOW Urine Appearance CLEAR Urine pH 6.0 Ur Specific [place] 1.011 Urine Protein NEGATIVE Urine Glucose (UA) NEGATIVE Urine Ketones NEGATIVE Urine Blood MODERATE H Urine Nitrite NEGATIVE Ur Leukocyte Esterase TRACE H Urine WBC (Auto) 5 Urine RBC (Auto) 35 12/12/17 04:52 WBC RBC Hgb Hct MCV MCH MCHC RDW Plt Count Seg Neutrophils % Lymphocytes % Monocytes % Eosinophils % Basophils % Absolute Neutrophils Absolute Lymphocytes Absolute Monocytes Absolute Eosinophils Absolute Basophils Sodium 143.6 Potassium 3.6 Chloride 106 Carbon Dioxide 29 Anion Gap 9 BUN 10 Creatinine 0.44 L Est GFR ( Amer) > 60 Est GFR (Non-Af Amer) > 60 Glucose 158 H Calcium 8.7 Urine Color Urine Appearance Urine pH Ur Specific [place] Urine Protein Urine Glucose (UA) Urine Ketones Urine Blood Urine Nitrite Ur Leukocyte Esterase Urine WBC (Auto) Urine RBC (Auto) 12/10/17 15:29 NT-Pro-B Natriuret Pep 485 Impressions: Chest X-Ray 12/10/17 00:00 IMPRESSION: Increased density in the left retrocardiac area which could represent atelectatic changes or basilar infiltrate. Remaining lung gutierres are clear. Other findings as noted above Chest/Abdomen CTA 12/11/17 00:00 IMPRESSION: There is suboptimal opacification of the pulmonary arteries. No definite evidence for pulmonary embolic disease is seen. Bibasilar airspace consolidation as noted above which could represent atelectatic changes or pneumonic infiltrates. No pleural effusions are identified. Other findings as noted above Assessment & Plan - Diagnosis (1) Dyspnea Qualifiers: Dyspnea type: orthopnea Qualified Code(s): R06.01 - Orthopnea Is this a current diagnosis for this admission?: Yes Plan: Improved; most likely a result of atelectasis and fluid volume overload. Chest x-ray demonstrates bibasilar atelectasis versus infiltrates. CTA Chest is negative for PE ProBNP slightly elevated at 485; though must be viewed cautiously given her BMI. The IV fluids were discontinued. Continue to diurese with lasix. Ortega catheter is placed for strict I's and O's. Incentive spirometry to bedside. Supplemental oxygen as needed to maintain oxygen saturations greater than 80%; will ask nursing to wean oxygen today. Schedule duo nebs and as needed nebulizer treatments. As there is no wheezing, there is no indication of COPD exacerbation, therefore will hold on steroids at this time. I do not feel the patient has pneumonia as she remains afebrile and denies cough /sputum production. She is incidentally covered for HAP as the surgical team has placed her on Van/Zosyn. (2) Diabetes mellitus Qualifiers: Diabetes mellitus type: type 2 Diabetes mellitus mcc insulin use: with termite exterminator helper use Diabetes mellitus complication status: without complication Qualified Code(s): E11.9 - Type 2 diabetes mellitus without complications; Z79.4 - local company intermodal truck driver (current) use of insulin; Z79.4 - local company intermodal truck driver ( current) use of insulin; Z79.4 - senior care (current) use of insulin; Z79.4 - local company intermodal truck driver (current) use of insulin Is this a current diagnosis for this admission?: Yes Plan: Blood glucose appears to have been well controlled with current management. The patient remains on a clear liquid diet. Accu-Cheks before meals and at bedtime with Humalog for sliding scale coverage. Glipizide is continued. We will continue to hold metformin while inpatient. (3) Hypertension Qualifiers: Hypertension type: essential hypertension Qualified Code(s): I10 - Essential (primary) hypertension Is this a current diagnosis for this admission?: Yes Plan: The patient's home medication regimen is continued with adequate blood pressure control. (4) Morbid obesity with BMI of 50.0-59.9, adult Is this a current diagnosis for this admission?: Yes Plan: The patient's is certainly contributing to her respiratory dysfunction. She is likely having some atelectasis given her body habitus and immobility. She may also have a component of sleep apnea. We will ask the grease cup filler and registered dietitian to meet with the patient. Remaining plan as above. (5) Smoker Is this a current diagnosis for this admission?: Yes Plan: The patient has a 20 year pack history. Monitor for evidence of COPD exacerbation; patient denies previous diagnosis of COPD. Smoking cessation is encouraged and nicotine replacement therapy is offered. (6) Cholecystitis with cholelithiasis Qualifiers: Cholelithiasis location: gallbladder Cholecystitis acuity: acute and chronic Biliary obstruction: without biliary obstruction Qualified Code(s): K80.12 - Calculus of gallbladder with acute and chronic cholecystitis without obstruction Is this a current diagnosis for this admission?: Yes Plan: Primary plan per surgery now status post cholecystectomy. Antibiotics and pain management per surgery team. (7) History of myocardial infarction Is this a current diagnosis for this admission?: Yes - Time Time Spent with patient: 15-24 minutes Medications reviewed and adjusted accordingly: Yes
--- NOTE | 2017-12-12 11:37 | PDOC PROGRESS REPORT ---
Subjective Progress Note for:: 12/11/17 Subjective:: Still SOB, more comfortable than yesterday, flatus, no stools, poor appetite Reason For Visit: CHOLELITHIASIS WITH CHOLECYSTITIS Physical Exam Vital Signs: Temp Pulse Resp BP Pulse Ox 98.6 F 89 19 140/55 H 96 12/11/17 07:25 12/11/17 08:31 12/11/17 08:31 12/11/17 07:25 12/11/17 08:31 Intake & Output 12/10/17 12/11/17 12/12/17 06:59 06:59 06:59 Intake Total 5194 1710 Output Total 1200 1635 Balance 3994 75 Weight 141.6 kg 140.5 kg General appearance: PRESENT: mild distress - respirtory SOB Respiratory exam: PRESENT: clear to auscultation roro Cardiovascular exam: PRESENT: RRR GI/Abdominal exam: PRESENT: diminished bowel sounds, other - large for obesity, all incisions are C/D/I Results Laboratory Results: 12/10/17 15:29 12/10/17 15:29 12/10/17 12/10/17 15:29 15:29 WBC 16.5 H RBC 3.63 L Hgb 12.2 Hct 37.2 MCV 103 H MCH 33.5 H MCHC 32.7 RDW 13.1 Plt Count 320 Seg Neutrophils % 82.8 H Lymphocytes % 12.0 L Monocytes % 4.7 Eosinophils % 0.2 Basophils % 0.3 Absolute Neutrophils 13.6 H Absolute Lymphocytes 2.0 Absolute Monocytes 0.8 Absolute Eosinophils 0.0 Absolute Basophils 0.0 Sodium 145.6 H Potassium 3.3 L Chloride 107 Carbon Dioxide 23 Anion Gap 16 BUN 13 Creatinine 0.45 L Est GFR ( Amer) > 60 Est GFR (Non-Af Amer) > 60 Glucose 160 H Calcium 9.0 Total Bilirubin 0.4 AST 66 H ALT 51 Alkaline Phosphatase 126 Total Protein 7.0 Albumin 3.7 12/10/17 15:29 NT-Pro-B Natriuret Pep 485 Impressions: Chest X-Ray 12/10/17 00:00 IMPRESSION: Increased density in the left retrocardiac area which could represent atelectatic changes or basilar infiltrate. Remaining lung gutierres are clear. Other findings as noted above Assessment & Plan - Diagnosis (1) Cholecystitis with cholelithiasis Qualifiers: Cholelithiasis location: gallbladder Cholecystitis acuity: acute and chronic Biliary obstruction: without biliary obstruction Qualified Code(s): K80.12 - Calculus of gallbladder with acute and chronic cholecystitis without obstruction Is this a current diagnosis for this admission?: Yes Plan: A/ POD #2 after laparoscopic cholecystectomy for acute cholecystitis with cholelithiasis BMI of 53 VSS, AF SOB improved after IVF off and Lasix given yesterday/today P/ Clear liquid diet Keep Ortega catheter K 3.3, will replace with 40 mEq of KCl IVPB PT to see for ambulation Daily CBC/BMP
--- NOTE | 2017-12-12 11:47 | PDOC PROGRESS REPORT ---
Subjective Progress Note for:: 12/12/17 Subjective:: Still SOB, tolerating po well; denies abdominal pain Reason For Visit: CHOLELITHIASIS WITH CHOLECYSTITIS Physical Exam Vital Signs: Temp Pulse Resp BP Pulse Ox 98.0 F 77 20 129/50 H 100 12/12/17 07:26 12/12/17 07:26 12/12/17 07:26 12/12/17 07:26 12/12/17 07:26 Intake & Output 12/11/17 12/12/17 12/13/17 06:59 06:59 06:59 Intake Total 1710 3432 Output Total 1635 2750 Balance 75 682 Weight 140.5 kg 140.8 kg General appearance: PRESENT: mild distress Respiratory exam: PRESENT: clear to auscultation roro Cardiovascular exam: PRESENT: RRR GI/Abdominal exam: PRESENT: normal bowel sounds, soft Results Laboratory Results: 12/12/17 04:52 12/12/17 04:52 12/11/17 12/11/17 12/12/17 12:30 21:28 04:52 WBC 9.1 RBC 3.21 L Hgb 10.9 L Hct 32.3 L MCV 101 H MCH 33.9 H MCHC 33.7 RDW 13.1 Plt Count 326 Seg Neutrophils % 65.6 Lymphocytes % 23.5 Monocytes % 8.6 Eosinophils % 1.6 Basophils % 0.7 Absolute Neutrophils 6.0 Absolute Lymphocytes 2.1 Absolute Monocytes 0.8 Absolute Eosinophils 0.1 Absolute Basophils 0.1 Sodium 142.7 Potassium 3.3 L Chloride 104 Carbon Dioxide 27 Anion Gap 12 BUN 9 Creatinine 0.41 L Est GFR ( Amer) > 60 Est GFR (Non-Af Amer) > 60 Glucose 147 H Calcium 8.6 Urine Color YELLOW Urine Appearance CLEAR Urine pH 6.0 Ur Specific [place] 1.011 Urine Protein NEGATIVE Urine Glucose (UA) NEGATIVE Urine Ketones NEGATIVE Urine Blood MODERATE H Urine Nitrite NEGATIVE Ur Leukocyte Esterase TRACE H Urine WBC (Auto) 5 Urine RBC (Auto) 35 12/12/17 04:52 WBC RBC Hgb Hct MCV MCH MCHC RDW Plt Count Seg Neutrophils % Lymphocytes % Monocytes % Eosinophils % Basophils % Absolute Neutrophils Absolute Lymphocytes Absolute Monocytes Absolute Eosinophils Absolute Basophils Sodium 143.6 Potassium 3.6 Chloride 106 Carbon Dioxide 29 Anion Gap 9 BUN 10 Creatinine 0.44 L Est GFR ( Amer) > 60 Est GFR (Non-Af Amer) > 60 Glucose 158 H Calcium 8.7 Urine Color Urine Appearance Urine pH Ur Specific [place] Urine Protein Urine Glucose (UA) Urine Ketones Urine Blood Urine Nitrite Ur Leukocyte Esterase Urine WBC (Auto) Urine RBC (Auto) 12/09/17 11:58 Gall Bladder Fluid Gram Stain - Final 12/09/17 11:58 Gall Bladder Fluid Body Fluid Culture - Final Strep Mutans (Viridans Strep) 12/10/17 15:29 NT-Pro-B Natriuret Pep 485 Impressions: Chest X-Ray 12/10/17 00:00 IMPRESSION: Increased density in the left retrocardiac area which could represent atelectatic changes or basilar infiltrate. Remaining lung gutierres are clear. Other findings as noted above Chest/Abdomen CTA 12/11/17 00:00 IMPRESSION: There is suboptimal opacification of the pulmonary arteries. No definite evidence for pulmonary embolic disease is seen. Bibasilar airspace consolidation as noted above which could represent atelectatic changes or pneumonic infiltrates. No pleural effusions are identified. Other findings as noted above Assessment & Plan - Diagnosis (1) Cholecystitis with cholelithiasis Qualifiers: Cholelithiasis location: gallbladder Cholecystitis acuity: acute and chronic Biliary obstruction: without biliary obstruction Qualified Code(s): K80.12 - Calculus of gallbladder with acute and chronic cholecystitis without obstruction Is this a current diagnosis for this admission?: Yes - Plan Summary Plan Summary: A/ POD#3 after lap dana VSS, AF, still SOB Good UO after Lasix BID Blood work WNL, K 3.6 today after replacement yesterday Clear tolerated P/ Advance diet to diabetic diet No acute General surgery issues identified When medically indicated, patient can be released from hospital at any time by the General Surgery viewpoint
[2017-12-12] MEDS: INSULIN REG, HUMAN 100 UNIT/ML 3 ML VIAL (PYX) SUBCUT PRN ×2 (14:13→17:33)
[2017-12-12] MEDS: TRAMADOL HCL 50 MG TABLET PO PRN ×2 (17:08→23:17)
[2017-12-12] MEDS: ATORVASTATIN CALCIUM 80 MG TABLET PO SCH (22:17)
[2017-12-13] MEDS: VANCOMYCIN HCL 1,500 MG in DEXTROSE 5%-WATER 250 ML IV SCH ×2 (05:47→17:15)
[2017-12-13 06:12] LABS: ABSOLUTE BASOPHILS # (AUTO) 0.1 10^3/uL (0.0-0.2); ABSOLUTE EOSINOPHILS # (AUTO) 0.2 10^3/uL (0.0-0.6); ABSOLUTE LYMPHOCYTES (AUTO) 2.2 10^3/uL (0.5-4.7); ABSOLUTE MONOCYTES (AUTO) 0.7 10^3/uL (0.1-1.4); ABSOLUTE NEUT (AUTO) 6.3 10^3/uL (1.7-8.2); BASOPHILS % (AUTO) 0.6 % (0-2); EOSINOPHILS % (AUTO) 1.8 % (0-6); HEMATOCRIT 33.1 % (36.0-47.0); HEMOGLOBIN 11.2 g/dL (12.0-15.5); LYMPHOCYTES % (AUTO) 23.4 % (13-45); MEAN CORPUSCULAR HEMOGLOBIN 33.8 pg (27.0-33.4); MEAN CORPUSCULAR HGB CONC 33.9 g/dL (32.0-36.0); MEAN CORPUSCULAR VOLUME 100 fl (80-97); MONOCYTES % (AUTO) 7.6 % (3-13); PLATELET COUNT 341 10^3/uL (150-450); RED BLOOD COUNT 3.32 10^6/uL (3.72-5.28); SEGMENTED NEUTROPHILS % (AUTO) 66.6 % (42-78); TOTAL CELLS COUNTED % (AUTO) 100 %; WHITE BLOOD COUNT 9.5 10^3/uL (4.0-10.5)
[2017-12-13 06:44] LABS: ANION GAP 11 (5-19); BLOOD UREA NITROGEN 11 mg/dL (7-20); CALCIUM 9.3 mg/dL (8.4-10.2); CARBON DIOXIDE 34 mmol/L (22-30); CHLORIDE 98 mmol/L (98-107); GLUCOSE 199 mg/dL (75-110); POTASSIUM 3.1 mmol/L (3.6-5.0)
[2017-12-13 06:45] LABS: VANCOMYCIN,TROUGH 9.8 ug/mL (5.0-20.0)
[2017-12-13] MEDS ORDERED: POTASSIUM CHLORIDE 10 MEQ TABLET.SA PO ONE (07:38)
[2017-12-13] MEDS: IPRATROPIUM/ALBUTEROL 0.5-2.5 MG/3 ML AMPUL NEB SCH (08:30)
[2017-12-13] MEDS: FUROSEMIDE INJ/PF 40 MG/4 ML SDV IV SCH (09:19)
[2017-12-13] MEDS: LOSARTAN POTASSIUM 50 MG TABLET PO SCH (09:19)
[2017-12-13] MEDS: AMLODIPINE BESYLATE 5 MG TABLET PO SCH (09:20)
[2017-12-13] MEDS: METOPROLOL TARTRATE 25 MG TABLET PO SCH ×2 (09:20→21:42)
[2017-12-13] MEDS: GLIPIZIDE 5 MG TABLET PO SCH (09:20)
[2017-12-13] MEDS: HYDROCHLOROTHIAZIDE 25 MG TABLET PO SCH (09:20)
[2017-12-13] MEDS: LIDOCAINE 5% (700 MG) TRANSDERMAL ADH..PATCH TP SCH (09:22)
[2017-12-13] MEDS: POTASSIUM CHLORIDE 10 MEQ TABLET.SA PO SCH (09:25)
--- NOTE | 2017-12-13 11:07 | PDOC PROGRESS REPORT ---
Subjective Progress Note for:: 12/13/17 Subjective:: The patient is a 67-year-old morbidly obese female with a past medical history of [place] with 3 stents in 2010, hyperlipidemia, hypertension, diabetes mellitus type 2 who is a patient of the hospitalist service and now postop cholecystectomy. The hospitalist service was consulted for evaluation and management of dyspnea. The patient is seen on morning rounds with her daughter present. She is found resting in bed comfortably on room air. She states that she is feeling better today; she denies orthopnea and dyspnea on exertion. She slept well overnight. She has also noted a slight increase in cough, although, this remains nonproductive. She denies fever, chills, chest pain, palpitations, cough. She denies abdominal pain, nausea, vomiting, diarrhea. She is now tolerating a regular diet. They have no new questions or concerns. Reason For Visit: CHOLELITHIASIS WITH CHOLECYSTITIS Physical Exam Vital Signs: Temp Pulse Resp BP Pulse Ox 98.2 F 78 16 143/57 H 94 12/13/17 03:43 12/13/17 08:30 12/13/17 08:30 12/12/17 23:45 12/13/17 08:30 Intake & Output 12/12/17 12/13/17 12/14/17 06:59 06:59 06:59 Intake Total 3432 2262 Output Total 2750 7350 Balance 682 -5088 Weight 140.8 kg 138.5 kg General appearance: PRESENT: no acute distress, morbidly obese, well-developed, well-nourished Head exam: PRESENT: atraumatic, normocephalic Eye exam: PRESENT: conjunctiva pink, EOMI, PERRLA. ABSENT: scleral icterus Ear exam: PRESENT: normal external ear exam Mouth exam: PRESENT: moist, tongue midline Neck exam: ABSENT: carotid bruit, JVD, lymphadenopathy, thyromegaly Respiratory exam: PRESENT: symmetrical, unlabored, wheezes - Right lower lobe, other - Room air. ABSENT: rales, rhonchi Cardiovascular exam: PRESENT: RRR, +S1, +S2. ABSENT: diastolic murmur, rubs, systolic murmur Pulses: PRESENT: normal dorsalis pedis pul Vascular exam: PRESENT: normal capillary refill GI/Abdominal exam: PRESENT: normal bowel sounds, soft. ABSENT: distended, guarding, mass, organolmegaly, rebound, tenderness Rectal exam: PRESENT: deferred Extremities exam: PRESENT: full ROM. ABSENT: calf tenderness, clubbing, pedal edema Neurological exam: PRESENT: alert, awake, oriented to person, oriented to place , oriented to time, oriented to situation, CN II-XII grossly intact. ABSENT: motor sensory deficit Psychiatric exam: PRESENT: appropriate affect, normal mood. ABSENT: homicidal ideation, suicidal ideation Skin exam: PRESENT: dry, intact, warm. ABSENT: cyanosis, rash Results Laboratory Results: 12/13/17 05:42 12/13/17 05:42 12/13/17 12/13/17 05:42 05:42 WBC 9.5 RBC 3.32 L Hgb 11.2 L Hct 33.1 L MCV 100 H MCH 33.8 H MCHC 33.9 RDW 13.0 Plt Count 341 Seg Neutrophils % 66.6 Lymphocytes % 23.4 Monocytes % 7.6 Eosinophils % 1.8 Basophils % 0.6 Absolute Neutrophils 6.3 Absolute Lymphocytes 2.2 Absolute Monocytes 0.7 Absolute Eosinophils 0.2 Absolute Basophils 0.1 Sodium 143.0 Potassium 3.1 L Chloride 98 Carbon Dioxide 34 H Anion Gap 11 BUN 11 Creatinine 0.41 L Est GFR ( Amer) > 60 Est GFR (Non-Af Amer) > 60 Glucose 199 H Calcium 9.3 12/11/17 12:30 Ortega Catheter Urine Culture - Final NO GROWTH 2 DAYS 12/09/17 11:58 Gall Bladder Fluid Gram Stain - Final 12/09/17 11:58 Gall Bladder Fluid Body Fluid Culture - Final Strep Mutans (Viridans Strep) 12/10/17 12/13/17 15:29 05:42 NT-Pro-B Natriuret Pep 485 185 Impressions: Chest X-Ray 12/10/17 00:00 IMPRESSION: Increased density in the left retrocardiac area which could represent atelectatic changes or basilar infiltrate. Remaining lung gutierres are clear. Other findings as noted above Chest/Abdomen CTA 12/11/17 00:00 IMPRESSION: There is suboptimal opacification of the pulmonary arteries. No definite evidence for pulmonary embolic disease is seen. Bibasilar airspace consolidation as noted above which could represent atelectatic changes or pneumonic infiltrates. No pleural effusions are identified. Other findings as noted above Assessment & Plan - Diagnosis (1) Dyspnea Qualifiers: Dyspnea type: orthopnea Qualified Code(s): R06.01 - Orthopnea Is this a current diagnosis for this admission?: Yes Plan: Improved; most likely a result of atelectasis and fluid volume overload. Chest x-ray demonstrates bibasilar atelectasis versus infiltrates. CTA Chest is negative for PE ProBNP trending down to 185; though must be viewed cautiously given her BMI. The IV fluids were discontinued. Will give an additional dose of furosemide 40 mg IV 1. She has had excellent response to diuretic; patient had nearly 7 L of urinary output in the last 24 hours. Ortega catheter is placed for strict I's and O's. Incentive spirometry to bedside. Slight wheeze today; patient does have a 20 year pack history, so likely has a component of COPD. Schedule duo nebs and as needed nebulizer treatments. Will hold on steroids at this time as the patient is clinically improving. (2) Diabetes mellitus Qualifiers: Diabetes mellitus type: type 2 Diabetes mellitus extermination supervisor insulin use: with fdc use Diabetes mellitus complication status: without complication Qualified Code(s): E11.9 - Type 2 diabetes mellitus without complications; Z79.4 - ferry terminal supervisor (current) use of insulin; Z79.4 - [facility] ( current) use of insulin; Z79.4 - [facility] (current) use of insulin; Z79.4 - ferry terminal supervisor (current) use of insulin Is this a current diagnosis for this admission?: Yes Plan: Blood glucose appears to have been well controlled with current management. Accu-Cheks before meals and at bedtime with Humalog for sliding scale coverage. Glipizide is continued. We will continue to hold metformin while inpatient. (3) Hypertension Qualifiers: Hypertension type: essential hypertension Qualified Code(s): I10 - Essential (primary) hypertension Is this a current diagnosis for this admission?: Yes Plan: The patient's home medication regimen is continued with adequate blood pressure control. (4) Morbid obesity with BMI of 50.0-59.9, adult Is this a current diagnosis for this admission?: Yes Plan: The patient's is certainly contributing to her respiratory dysfunction. She is likely having some atelectasis given her body habitus and immobility. She may also have a component of sleep apnea. We will ask the parent educator and registered dietitian to meet with the patient. Remaining plan as above. (5) Smoker Is this a current diagnosis for this admission?: Yes Plan: The patient has a 20 year pack history. Monitor for evidence of COPD exacerbation; patient denies previous diagnosis of COPD. Smoking cessation is encouraged and nicotine replacement therapy is offered. (6) Cholecystitis with cholelithiasis Qualifiers: Cholelithiasis location: gallbladder Cholecystitis acuity: acute and chronic Biliary obstruction: without biliary obstruction Qualified Code(s): K80.12 - Calculus of gallbladder with acute and chronic cholecystitis without obstruction Is this a current diagnosis for this admission?: Yes Plan: Primary plan per surgery now status post cholecystectomy. Antibiotics and pain management per surgery team. (7) History of myocardial infarction Is this a current diagnosis for this admission?: Yes (8) Chronic back pain Is this a current diagnosis for this admission?: Yes Plan: Patient has done well with Lidoderm patches and Tramadol for breakthrough pain. - Time Time Spent with patient: 25-34 minutes Smoking Cessation Education: 3 to 10 minutes Medications reviewed and adjusted accordingly: Yes - Plan Summary Plan Summary: The patient has had excellent response to Lasix therapy; nearly 7 L of urinary output and weight has declined 3 kg symptoms are improved and the patient is now on room air. Will provide some additional Lasix today and remove Ortega catheter this afternoon. Monitor overnight and anticipate that the patient will be ready for discharge at surgery's discretion tomorrow.
--- NOTE | 2017-12-13 11:21 | PDOC PROGRESS REPORT ---
Subjective Progress Note for:: 12/13/17 Subjective:: patient comfortable, tolerating po well, denies bowel movement, reports flatus Reason For Visit: CHOLELITHIASIS WITH CHOLECYSTITIS Physical Exam Vital Signs: Temp Pulse Resp BP Pulse Ox 98.2 F 78 16 143/57 H 94 12/13/17 03:43 12/13/17 08:30 12/13/17 08:30 12/12/17 23:45 12/13/17 08:30 Intake & Output 12/12/17 12/13/17 12/14/17 06:59 06:59 06:59 Intake Total 3432 2262 Output Total 2750 7350 Balance 682 -5066 Weight 140.8 kg 138.5 kg General appearance: PRESENT: no acute distress Respiratory exam: PRESENT: clear to auscultation roro Cardiovascular exam: PRESENT: RRR GI/Abdominal exam: PRESENT: normal bowel sounds, soft - obese, other - all incisions are c/d/i Results Laboratory Results: 12/13/17 05:42 12/13/17 05:42 12/13/17 12/13/17 05:42 05:42 WBC 9.5 RBC 3.32 L Hgb 11.2 L Hct 33.1 L MCV 100 H MCH 33.8 H MCHC 33.9 RDW 13.0 Plt Count 341 Seg Neutrophils % 66.6 Lymphocytes % 23.4 Monocytes % 7.6 Eosinophils % 1.8 Basophils % 0.6 Absolute Neutrophils 6.3 Absolute Lymphocytes 2.2 Absolute Monocytes 0.7 Absolute Eosinophils 0.2 Absolute Basophils 0.1 Sodium 143.0 Potassium 3.1 L Chloride 98 Carbon Dioxide 34 H Anion Gap 11 BUN 11 Creatinine 0.41 L Est GFR ( Amer) > 60 Est GFR (Non-Af Amer) > 60 Glucose 199 H Calcium 9.3 12/11/17 12:30 Ortega Catheter Urine Culture - Final NO GROWTH 2 DAYS 12/09/17 11:58 Gall Bladder Fluid Gram Stain - Final 12/09/17 11:58 Gall Bladder Fluid Body Fluid Culture - Final Strep Mutans (Viridans Strep) 12/10/17 12/13/17 15:29 05:42 NT-Pro-B Natriuret Pep 485 185 Impressions: Chest X-Ray 12/10/17 00:00 IMPRESSION: Increased density in the left retrocardiac area which could represent atelectatic changes or basilar infiltrate. Remaining lung gutierres are clear. Other findings as noted above Chest/Abdomen CTA 12/11/17 00:00 IMPRESSION: There is suboptimal opacification of the pulmonary arteries. No definite evidence for pulmonary embolic disease is seen. Bibasilar airspace consolidation as noted above which could represent atelectatic changes or pneumonic infiltrates. No pleural effusions are identified. Other findings as noted above Assessment & Plan - Diagnosis (1) Cholecystitis with cholelithiasis Qualifiers: Cholelithiasis location: gallbladder Cholecystitis acuity: acute and chronic Biliary obstruction: without biliary obstruction Qualified Code(s): K80.12 - Calculus of gallbladder with acute and chronic cholecystitis without obstruction Is this a current diagnosis for this admission?: Yes - Plan Summary Plan Summary: A/ POD #4 after laparoscopic cholecystectomy VSS, AF Blood work WNL PE abdomen unremarkable patient still in fluid overload postop No General Surgery issues identified P/ I will sign off Transfer to the Hospitalist service (MILADYS Clement) Patient to continue on the current diet Follow up in the Surgery office 2 weeks after discharge No wound care needed Shower immediately, bathe after 12/28/17 Tylenol only for pain
[2017-12-13] MEDS: TRAMADOL HCL 50 MG TABLET PO PRN (20:11)
[2017-12-13] MEDS ORDERED: MINERAL OIL ENEMA 133 ML PR ONE (21:38)
[2017-12-13] MEDS: ATORVASTATIN CALCIUM 80 MG TABLET PO SCH (21:42)
[2017-12-13] MEDS: SALMETEROL XINAFOATE DISKUS 50 MCG/1 DOSE 28 DOSE IH SCH (21:42)
[2017-12-13] MEDS ORDERED: NA PHOS,M-B/NA PHOS,DI-BA (ADULT) 133 ML ENEMA PR ONE (22:25)
[2017-12-13] MEDS ORDERED: MINERAL OIL 30 ML UDCUP ONE (22:41)
--- NOTE | 2017-12-14 01:04 | RADIOLOGY REPORT (SQ) ---
EXAM DESCRIPTION: ABDOMEN 2 VIEWS CLINICAL HISTORY: 67 years, Female, abd distension COMPARISON: December 10, 2017, CR. CT, chest, December 11, 2017, report only. NUMBER OF VIEWS: 6 LIMITATIONS: None. FINDINGS: Right upper abdominal clips. Prominent jejunal bowel loops measures up to 2.4 cm in diameter with mild stacking. Moderate streakiness and patchiness of bilateral lower lobes. Atherosclerosis. IMPRESSION: 1. Moderate bilateral lower lobar pneumonia/atelectasis. 2. Possible focal jejunal ileus.
[2017-12-14 05:10] LABS: ABSOLUTE EOSINOPHILS # (AUTO) 0.2 10^3/uL (0.0-0.6); ABSOLUTE LYMPHOCYTES (AUTO) 2.5 10^3/uL (0.5-4.7); ABSOLUTE MONOCYTES (AUTO) 0.7 10^3/uL (0.1-1.4); ABSOLUTE NEUT (AUTO) 6.2 10^3/uL (1.7-8.2); BASOPHILS % (AUTO) 0.4 % (0-2); EOSINOPHILS % (AUTO) 1.8 % (0-6); HEMATOCRIT 34.4 % (36.0-47.0); HEMOGLOBIN 11.5 g/dL (12.0-15.5); LYMPHOCYTES % (AUTO) 26.2 % (13-45); MEAN CORPUSCULAR HEMOGLOBIN 33.2 pg (27.0-33.4); MEAN CORPUSCULAR HGB CONC 33.4 g/dL (32.0-36.0); MEAN CORPUSCULAR VOLUME 100 fl (80-97); MONOCYTES % (AUTO) 7.6 % (3-13); PLATELET COUNT 379 10^3/uL (150-450); RED BLOOD COUNT 3.45 10^6/uL (3.72-5.28); RED CELL DISTRIBUTION WIDTH 12.5 % (11.5-14.0); TOTAL CELLS COUNTED % (AUTO) 100 %; WHITE BLOOD COUNT 9.7 10^3/uL (4.0-10.5)
[2017-12-14 05:37] LABS: ANION GAP 9 (5-19); BLOOD UREA NITROGEN 15 mg/dL (7-20); CALCIUM 9.7 mg/dL (8.4-10.2); CARBON DIOXIDE 38 mmol/L (22-30); CHLORIDE 96 mmol/L (98-107); GLUCOSE 205 mg/dL (75-110); POTASSIUM 3.1 mmol/L (3.6-5.0); SODIUM 142.5 mmol/L (137-145)
[2017-12-14] MEDS: METFORMIN HCL 500 MG TABLET PO SCH (09:28)
[2017-12-14] MEDS: INSULIN REG, HUMAN 100 UNIT/ML 3 ML VIAL (PYX) SUBCUT PRN ×2 (09:28→13:24)
[2017-12-14] MEDS: AMLODIPINE BESYLATE 5 MG TABLET PO SCH (09:28)
[2017-12-14] MEDS: POTASSIUM CHLORIDE 10 MEQ TABLET.SA PO SCH (09:28)
[2017-12-14] MEDS: LOSARTAN POTASSIUM 50 MG TABLET PO SCH (09:28)
[2017-12-14] MEDS: METOPROLOL TARTRATE 25 MG TABLET PO SCH ×2 (09:29→21:48)
[2017-12-14] MEDS: SALMETEROL XINAFOATE DISKUS 50 MCG/1 DOSE 28 DOSE IH SCH ×2 (09:29→21:48)
[2017-12-14] MEDS: HYDROCHLOROTHIAZIDE 25 MG TABLET PO SCH (09:29)
[2017-12-14] MEDS: TIOTROPIUM BROMIDE DPI 5 CAP/KIT (18 MCG/CAP) IH SCH (09:29)
[2017-12-14] MEDS: GLIPIZIDE 5 MG TABLET PO SCH (09:29)
[2017-12-14] MEDS: LIDOCAINE 5% (700 MG) TRANSDERMAL ADH..PATCH TP SCH (09:30)
[2017-12-14] MEDS ORDERED: POTASSIUM CHLORIDE 10 MEQ TABLET.SA PO ONE (10:00)
[2017-12-14] MEDS ORDERED: BISACODYL 10 MG SUPP.RECT PR ONE (10:23)
[2017-12-14 10:47] LABS: ARTERIAL BLOOD H2CO3 1.26 mmol/L (1.05-1.35); ARTERIAL BLOOD HCO3 34.6 mmol/L (20-26); ARTERIAL BLOOD O2 SATURATION 96.1 % (94-98); ARTERIAL BLOOD PCO2 41.8 mmHg (35-45); ARTERIAL BLOOD PH 7.54 (7.35-7.45); ARTERIAL BLOOD TOTAL CO2 35.9 mmol/L (21-25)
[2017-12-14 10:49] LABS: ARTERIAL BLOOD FIO2 21%
[2017-12-14 11:21] LABS: HEMATOCRIT 34.9 % (36.0-47.0); HEMOGLOBIN 11.7 g/dL (12.0-15.5); MEAN CORPUSCULAR HEMOGLOBIN 33.4 pg (27.0-33.4); MEAN CORPUSCULAR HGB CONC 33.6 g/dL (32.0-36.0); MEAN CORPUSCULAR VOLUME 100 fl (80-97); PLATELET COUNT 390 10^3/uL (150-450); RED BLOOD COUNT 3.51 10^6/uL (3.72-5.28); RED CELL DISTRIBUTION WIDTH 12.7 % (11.5-14.0); WHITE BLOOD COUNT 8.9 10^3/uL (4.0-10.5)
[2017-12-14 11:29] LABS: INTERNATIONAL RATION (INR) 0.94; PARTIAL THROMBOPLASTIN TIME 29.2 SEC (23.5-35.8)
[2017-12-14] MEDS: HEPARIN SOD (PORCINE) 5,000 UNIT/ML 1 ML SYRINGE SUBCUT SCH ×2 (13:23→21:48)
[2017-12-14] MEDS: TRAMADOL HCL 50 MG TABLET PO PRN ×2 (13:27→20:51)
--- NOTE | 2017-12-14 15:58 | PDOC PROGRESS REPORT ---
Subjective Progress Note for:: 12/14/17 Subjective:: The patient is a 67-year-old morbidly obese female with a past medical history of IL with 3 stents in 2010, hyperlipidemia, hypertension, diabetes mellitus type 2 who is a patient of the hospitalist service and now postop cholecystectomy. The hospitalist service was consulted for evaluation and management of dyspnea. The patient is seen on morning rounds with her daughter present. She is found resting in bed comfortably on room air. She states that she is feeling better today; she denies orthopnea, dyspnea on exertion and cough. She slept well overnight. She denies fever, chills, chest pain, palpitations, cough. She denies fever, chills, chest pain, palpitations, abdominal pain, nausea, vomiting, diarrhea. She is now tolerating a regular diet. They have no new questions or concerns. Reason For Visit: CHOLELITHIASIS WITH CHOLECYSTITIS Physical Exam Vital Signs: Temp Pulse Resp BP Pulse Ox 97.9 F 58 L 18 133/60 H 97 12/14/17 12:00 12/14/17 14:00 12/14/17 12:28 12/14/17 12:00 12/14/17 12:28 Pulse Oximeter Nocturnal Start: 12/14/17 10: 22 Freq: Status: Active Document 12/14/17 12:28 HCR (Rec: 12/14/17 12:29 HCR [email or web address]) Nocturnal Pulse Oximetry Equipment Usage Equipment Standby Continuous SpO2 Machine # [id number] Intake & Output 12/13/17 12/14/17 12/15/17 06:59 06:59 06:59 Intake Total 2262 1088 366 Output Total 6003 3500 550 Balance -5088 -2412 -184 Weight 138.5 kg 135.8 kg General appearance: PRESENT: no acute distress, morbidly obese, well-developed, well-nourished Head exam: PRESENT: atraumatic, normocephalic Eye exam: PRESENT: conjunctiva pink, EOMI, PERRLA. ABSENT: scleral icterus Ear exam: PRESENT: normal external ear exam Mouth exam: PRESENT: moist, tongue midline Neck exam: ABSENT: carotid bruit, JVD, lymphadenopathy, thyromegaly Respiratory exam: PRESENT: clear to auscultation roro, symmetrical, unlabored. ABSENT: rales, rhonchi, wheezes Cardiovascular exam: PRESENT: RRR, +S1, +S2. ABSENT: diastolic murmur, rubs, systolic murmur Pulses: PRESENT: normal dorsalis pedis pul Vascular exam: PRESENT: normal capillary refill GI/Abdominal exam: PRESENT: normal bowel sounds, soft. ABSENT: distended, guarding, mass, organolmegaly, rebound, tenderness Rectal exam: PRESENT: deferred Extremities exam: PRESENT: full ROM. ABSENT: calf tenderness, clubbing, pedal edema Neurological exam: PRESENT: alert, awake, oriented to person, oriented to place , oriented to time, oriented to situation, CN II-XII grossly intact. ABSENT: motor sensory deficit Psychiatric exam: PRESENT: appropriate affect, normal mood. ABSENT: homicidal ideation, suicidal ideation Skin exam: PRESENT: dry, intact, warm. ABSENT: cyanosis, rash Results Laboratory Results: 12/14/17 10:42 12/14/17 10:42 12/14/17 12/14/17 12/14/17 04:46 04:46 10:37 WBC 9.7 RBC 3.45 L Hgb 11.5 L Hct 34.4 L MCV 100 H MCH 33.2 MCHC 33.4 RDW 12.5 Plt Count 379 Seg Neutrophils % 64.0 Lymphocytes % 26.2 Monocytes % 7.6 Eosinophils % 1.8 Basophils % 0.4 Absolute Neutrophils 6.2 Absolute Lymphocytes 2.5 Absolute Monocytes 0.7 Absolute Eosinophils 0.2 Absolute Basophils 0.0 Carbonic Acid 1.26 HCO3/H2CO3 Ratio 27:1 ABG pH 7.54 H ABG pCO2 41.8 ABG pO2 73.0 L ABG HCO3 34.6 H ABG O2 Saturation 96.1 ABG Base Excess 11.0 FiO2 21% Sodium 142.5 Potassium 3.1 L Chloride 96 L Carbon Dioxide 38 H Anion Gap 9 BUN 15 Creatinine 0.57 Est GFR ( Amer) > 60 Est GFR (Non-Af Amer) > 60 Glucose 205 H Calcium 9.7 12/14/17 12/14/17 10:42 10:42 WBC 8.9 RBC 3.51 L Hgb 11.7 L Hct 34.9 L MCV 100 H MCH 33.4 MCHC 33.6 RDW 12.7 Plt Count 390 Seg Neutrophils % Lymphocytes % Monocytes % Eosinophils % Basophils % Absolute Neutrophils Absolute Lymphocytes Absolute Monocytes Absolute Eosinophils Absolute Basophils Carbonic Acid HCO3/H2CO3 Ratio ABG pH ABG pCO2 ABG pO2 ABG HCO3 ABG O2 Saturation ABG Base Excess FiO2 Sodium Potassium Chloride Carbon Dioxide Anion Gap BUN Creatinine 0.55 Est GFR ( Amer) > 60 Est GFR (Non-Af Amer) > 60 Glucose Calcium 12/10/17 12/13/17 15:29 05:42 NT-Pro-B Natriuret Pep 485 185 Impressions: Chest X-Ray 12/10/17 00:00 IMPRESSION: Increased density in the left retrocardiac area which could represent atelectatic changes or basilar infiltrate. Remaining lung gutierres are clear. Other findings as noted above Chest/Abdomen CTA 12/11/17 00:00 IMPRESSION: There is suboptimal opacification of the pulmonary arteries. No definite evidence for pulmonary embolic disease is seen. Bibasilar airspace consolidation as noted above which could represent atelectatic changes or pneumonic infiltrates. No pleural effusions are identified. Other findings as noted above Abdomen X-Ray 12/13/17 21:38 IMPRESSION: 1. Moderate bilateral lower lobar pneumonia/atelectasis. 2. Possible focal jejunal ileus. Assessment & Plan - Diagnosis (1) Dyspnea Qualifiers: Dyspnea type: orthopnea Qualified Code(s): R06.01 - Orthopnea Is this a current diagnosis for this admission?: Yes Plan: Improved; most likely a result of atelectasis and fluid volume overload. Chest x-ray demonstrates bibasilar atelectasis versus infiltrates. CTA Chest is negative for PE ProBNP trending down to 185; though must be viewed cautiously given her BMI. ABG reveals metabolic alkalosis secondary to contraction alkalosis. Incentive spirometry to bedside. Ambulate in the hallways 3 times daily. We will order overnight pulse oximetry to see if patient qualifies for home O2. Have placed the patient on spiriva and symbicort for presumed COPD given the patient's 20 year smoking history. As needed nebulizer treatments. Will hold on steroids at this time as the patient is clinically improving. (2) Diabetes mellitus Qualifiers: Diabetes mellitus type: type 2 Diabetes mellitus lobsterman insulin use: with mcc use Diabetes mellitus complication status: without complication Qualified Code(s): E11.9 - Type 2 diabetes mellitus without complications; Z79.4 - long term care pharmacist (current) use of insulin; Z79.4 - long term care pharmacist ( current) use of insulin; Z79.4 - [facility] (current) use of insulin; Z79.4 - long term care pharmacist (current) use of insulin Is this a current diagnosis for this admission?: Yes Plan: Blood glucose appears to have been well controlled with current management. Accu-Cheks before meals and at bedtime with Humalog for sliding scale coverage. Glipizide is continued. We will continue to hold metformin while inpatient. (3) Hypertension Qualifiers: Hypertension type: essential hypertension Qualified Code(s): I10 - Essential (primary) hypertension Is this a current diagnosis for this admission?: Yes Plan: The patient's home medication regimen is continued with adequate blood pressure control. (4) Morbid obesity with BMI of 50.0-59.9, adult Is this a current diagnosis for this admission?: Yes Plan: The patient's obesity is certainly contributing to her respiratory dysfunction. She is likely having some atelectasis given her body habitus and immobility. She may also have a component of sleep apnea. We will ask the early childhood educator aide and registered dietitian to meet with the patient. Remaining plan as above. (5) Smoker Is this a current diagnosis for this admission?: Yes Plan: The patient has a 20 year pack history. Monitor for evidence of COPD exacerbation; patient denies previous diagnosis of COPD. Smoking cessation is encouraged and nicotine replacement therapy is offered. (6) Cholecystitis with cholelithiasis Qualifiers: Cholelithiasis location: gallbladder Cholecystitis acuity: acute and chronic Biliary obstruction: without biliary obstruction Qualified Code(s): K80.12 - Calculus of gallbladder with acute and chronic cholecystitis without obstruction Is this a current diagnosis for this admission?: Yes Plan: Some concern for ileus by Acute ABD series this morning; pt is passing gas and has now had a large bowel movement. Will advance diet. Continue Mirilax daily. (7) History of myocardial infarction Is this a current diagnosis for this admission?: Yes (8) Chronic back pain Is this a current diagnosis for this admission?: Yes Plan: Patient has done well with Lidoderm patches and Tramadol for breakthrough pain. - Time Time Spent with patient: 25-34 minutes Medications reviewed and adjusted accordingly: Yes Anticipated discharge: Home Within: within 24 hours
[2017-12-14] MEDS: ATORVASTATIN CALCIUM 80 MG TABLET PO SCH (21:48)
[2017-12-15] MEDS: HEPARIN SOD (PORCINE) 5,000 UNIT/ML 1 ML SYRINGE SUBCUT SCH ×2 (05:08→13:47)
[2017-12-15 05:18] LABS: ABSOLUTE BASOPHILS # (AUTO) 0.1 10^3/uL (0.0-0.2); ABSOLUTE EOSINOPHILS # (AUTO) 0.2 10^3/uL (0.0-0.6); ABSOLUTE LYMPHOCYTES (AUTO) 2.7 10^3/uL (0.5-4.7); ABSOLUTE MONOCYTES (AUTO) 0.7 10^3/uL (0.1-1.4); ABSOLUTE NEUT (AUTO) 6.1 10^3/uL (1.7-8.2); BASOPHILS % (AUTO) 0.7 % (0-2); EOSINOPHILS % (AUTO) 2.2 % (0-6); HEMATOCRIT 35.2 % (36.0-47.0); HEMOGLOBIN 11.9 g/dL (12.0-15.5); LYMPHOCYTES % (AUTO) 27.5 % (13-45); MEAN CORPUSCULAR HEMOGLOBIN 33.5 pg (27.0-33.4); MEAN CORPUSCULAR HGB CONC 33.9 g/dL (32.0-36.0); MEAN CORPUSCULAR VOLUME 99 fl (80-97); MONOCYTES % (AUTO) 6.8 % (3-13); PLATELET COUNT 392 10^3/uL (150-450); RED BLOOD COUNT 3.56 10^6/uL (3.72-5.28); RED CELL DISTRIBUTION WIDTH 12.6 % (11.5-14.0); SEGMENTED NEUTROPHILS % (AUTO) 62.8 % (42-78); TOTAL CELLS COUNTED % (AUTO) 100 %; WHITE BLOOD COUNT 9.7 10^3/uL (4.0-10.5)
[2017-12-15 05:42] LABS: ANION GAP 11 (5-19); BLOOD UREA NITROGEN 15 mg/dL (7-20); CALCIUM 9.6 mg/dL (8.4-10.2); CARBON DIOXIDE 33 mmol/L (22-30); CHLORIDE 97 mmol/L (98-107); GLUCOSE 203 mg/dL (75-110); POTASSIUM 3.2 mmol/L (3.6-5.0); SODIUM 140.7 mmol/L (137-145)
[2017-12-15] MEDS: INSULIN REG, HUMAN 100 UNIT/ML 3 ML VIAL (PYX) SUBCUT PRN ×2 (08:47→13:24)
[2017-12-15] MEDS: LIDOCAINE 5% (700 MG) TRANSDERMAL ADH..PATCH TP SCH (09:48)
[2017-12-15] MEDS: TIOTROPIUM BROMIDE DPI 5 CAP/KIT (18 MCG/CAP) IH SCH (09:48)
[2017-12-15] MEDS: SALMETEROL XINAFOATE DISKUS 50 MCG/1 DOSE 28 DOSE IH SCH (09:48)
[2017-12-15] MEDS: LOSARTAN POTASSIUM 50 MG TABLET PO SCH (09:48)
[2017-12-15] MEDS: AMLODIPINE BESYLATE 5 MG TABLET PO SCH (09:49)
[2017-12-15] MEDS: HYDROCHLOROTHIAZIDE 25 MG TABLET PO SCH (09:49)
[2017-12-15] MEDS: METFORMIN HCL 500 MG TABLET PO SCH (09:49)
[2017-12-15] MEDS: GLIPIZIDE 5 MG TABLET PO SCH (09:49)
[2017-12-15] MEDS: POTASSIUM CHLORIDE 10 MEQ TABLET.SA PO SCH (09:49)
[2017-12-15] MEDS: METOPROLOL TARTRATE 25 MG TABLET PO SCH (09:50)
[2017-12-15] MEDS ORDERED: POLYETHYLENE GLYCOL 3350 POWDER 17 GM/1 PACKET PO SCH (10:00)
[2017-12-15 14:27] VITALS: BP 143/64
--- NOTE | 2017-12-30 10:22 | PDOC DISCHARGE SUMMARY ---
General - Admit/Disc Date/PCP Admission Date/Primary Care Provider: 12/07/17 21:01 JERAD GROVE, Discharge Date: 12/15/17 - Discharge Diagnosis (1) Dyspnea Is this a current diagnosis for this admission?: Yes Summary: Improved; most likely a result of atelectasis and fluid volume overload. Chest x-ray demonstrates bibasilar atelectasis versus infiltrates. CTA Chest is negative for PE ProBNP trending down to 185 prior to discharge; though must be viewed cautiously given her BMI. ABG revealed metabolic alkalosis secondary to contraction alkalosis. Incentive spirometry. Able to ambulate in hallway. We will order overnight pulse oximetry to see if patient qualifies for home O2 Patient on spiriva and symbicort for presumed COPD given the patient's 20 year smoking history. As needed nebulizer treatments. (2) Hypertension Is this a current diagnosis for this admission?: Yes Summary: The patient's home medication regimen is continued with adequate blood pressure control. No changes, continue post discharge (3) Diabetes mellitus Is this a current diagnosis for this admission?: Yes Summary: Blood glucose appeared to have been well controlled inpatient management. Accu-Cheks before meals and at bedtime with Humalog for sliding scale coverage. Glipizide is continued post discharge Metformin on hold while inpatient, continue post discharge (4) Morbid obesity with BMI of 50.0-59.9, adult Is this a current diagnosis for this admission?: Yes Summary: The patient's obesity is certainly contributing to her respiratory dysfunction. She is likely having some atelectasis given her body habitus and immobility. She may also have a component of sleep apnea. senior health educator and registered dietitian met with the patient. (5) Smoker Is this a current diagnosis for this admission?: Yes Summary: The patient has a 20 year pack history. Monitor for evidence of COPD exacerbation; patient denies previous diagnosis of COPD. Smoking cessation is encouraged and nicotine replacement therapy was offered. (6) Cholecystitis with cholelithiasis Is this a current diagnosis for this admission?: Yes Summary: current diagnosis for this admission?: Yes Plan: Some concern for ileus by Acute ABD series this morning; pt is passing gas and has now had a large bowel movement. Tolerating PO diet. No further workup post-discharge (7) Chronic back pain Is this a current diagnosis for this admission?: Yes Summary: Patient has done well with Lidoderm patches and Tramadol for breakthrough pain. Sent home with prescription for Lidoderm patch and Tramadol. - Additional Information Resuscitation Status: Full Code Discharge Diet: Cardiac Discharge Activity: Activity As Tolerated Prescriptions: Lidocaine [Lidoderm 5% (700 mg) Transdermal Patch] 2 patch TP DAILY #30 adh..patch Salmeterol Xinafoate [Serevent Diskus 50 Mcg/Dose 28 Dose/Diskus] 50 mcg IH Q12 #1 disk Tiotropium Lily [Spiriva Handihaler 5 Cap/Kit (18 Mcg/Cap)] 1 cap IH DAILY # 1 kit Tramadol HCl [Ultram 50 mg Tablet] 50 mg PO Q6HP PRN #12 tablet PRN Reason: Home Medications: Amlodipine Besylate [Norvasc 5 mg Tablet] 5 mg PO DAILY 12/07/17 Atorvastatin Calcium [Lipitor 80 mg Tablet] 80 mg PO QHS 12/07/17 Clopidogrel Bisulfate [Plavix 75 mg Tablet] 75 mg PO DAILY 12/07/17 Glipizide/Metformin HCl [Glipizide-Metformin 5-500 mg] 1 tab PO DAILY 12/07/17 Losartan/Hydrochlorothiazide [Losartan-Hctz 100-25 mg Tab] 1 tab PO DAILY Metoprolol Tartrate [Lopressor 25 mg Tablet] 25 mg PO Q12 12/07/17 Potassium Chloride [Klor-Con 10 Meq Tablet.sa] 10 meq PO DAILY 12/07/17 Lidocaine [Lidoderm 5% (700 mg) Transdermal Patch] 2 patch TP DAILY #30 adh..patch 12/13/17 Salmeterol Xinafoate [Serevent Diskus 50 Mcg/Dose 28 Dose/Diskus] 50 mcg IH Q12 #1 disk 12/13/17 Tiotropium Lily [Spiriva Handihaler 5 Cap/Kit (18 Mcg/Cap)] 1 cap IH DAILY # 1 kit 12/13/17 Tramadol HCl [Ultram 50 mg Tablet] 50 mg PO Q6HP PRN #12 tablet 12/13/17 History of Present Illness History of Present Illness: MAGGIE RIDER is a 67 year old female Patient is seen in the emergency department the second time via ground rescue complaining of abdominal pain nausea, radiation to the right upper quadrant and back. She was seen yesterday in the emergency department where she was evaluated and found to have gallstones by gallbladder ultrasonography. She was given the option to be admitted but preferred to be discharged home. Returns to the emergency department with the above complaints. Last bowel movement yesterday, normal. She has been hurting for 2 days. She has previous episodes of abdominal pain. Never had a colonoscopy. Surgery was consulted and she was advised admission for definitive management. The patient is seen at request of surgery for evaluation and management of dyspnea. HPI is reviewed, the patient was admitted and placed on IV maintenance fluids at a rate of 175 mL/HR for the previous 2 days that she was in n.p.o. status. Per nursing, the patient began experiencing dyspnea while at rest that gradually worsened throughout the day. Her symptoms are improved when she is sitting high Ruvalcaba's or ambulatory (standing). Patient and daughter state that she has never had a COPD or CHF exacerbation; the patient has no known history of CHF. She denies fever, chills, chest pain. She does endorse a slight nonproductive cough and occasional palpitations when she is severely short of breath. The patient has just returned from radiology but was unable to lie flat for CTA of the chest. She has no leg edema or discomfort at this time. Hospital Course Hospital Course: as above Physical Exam Vital Signs: Temp Pulse Resp BP Pulse Ox 98.1 F 70 18 143/64 H 93 12/15/17 14:24 12/15/17 14:24 12/15/17 14:24 12/15/17 14:24 12/15/17 14:24 Pulse Oximeter Nocturnal Start: 12/14/17 10: 22 Freq: Status: Complete Document 12/15/17 01:34 SFL (Rec: 12/15/17 01:34 SFL [email or web address]) Nocturnal Pulse Oximetry Equipment Usage Equipment in Use Oxygen Delivery Method (includes room Room Air air) O2 Sat by Pulse Oximetry (92-100) 94 Continuous SpO2 Machine # 13 Results Laboratory Results: 12/15/17 05:06 12/15/17 05:06 12/10/17 12/13/17 15:29 05:42 NT-Pro-B Natriuret Pep 485 185 Impressions: Chest X-Ray 12/10/17 00:00 IMPRESSION: Increased density in the left retrocardiac area which could represent atelectatic changes or basilar infiltrate. Remaining lung gutierres are clear. Other findings as noted above Chest/Abdomen CTA 12/11/17 00:00 IMPRESSION: There is suboptimal opacification of the pulmonary arteries. No definite evidence for pulmonary embolic disease is seen. Bibasilar airspace consolidation as noted above which could represent atelectatic changes or pneumonic infiltrates. No pleural effusions are identified. Other findings as noted above Abdomen X-Ray 12/13/17 21:38 IMPRESSION: 1. Moderate bilateral lower lobar pneumonia/atelectasis. 2. Possible focal jejunal ileus. Status: Imported from PACS Qualifiers - * PATIENT BEING DISCHARGED WITH ANY OF THE FOLLOWING DIAGNOSIS: No Plan Discharge Plan: Discharge home with Spiriva and Serevent inhalers for COPD. Additionally, sent home with Tramadol and Lidocaine patches for back pain. Time Spent: Less than 30 Minutes
== END 2017-12-15 15:35 | disposition home health service (06) | DRG 418 ==
LOC: ER 17:07 → INTOOBSV 21:01 → EH 21:01 → OBSVTOIN 21:01 → 3W 23:35
PROVIDERS: ADMIT Surgery; ATTEND Surgery
PROC: 0FT44ZZ Resection of Gallbladder, Percutaneous Endoscopic Approach (ICD-10-PCS; principal; 2017-12-09 11:30)
PROC: 5A09457 Assistance with Respiratory Ventilation, 24-96 Consecutive Hours, Continuous Positive Airway Pressure (ICD-10-PCS; 2017-12-10)
PROC: 3E0F73Z Introduction of Anti-inflammatory into Respiratory Tract, Via Natural or Artificial Opening (ICD-10-PCS; 2017-12-10)
DX: K80.12 Calculus of gallbladder with acute and chronic cholecystitis without obstruction (principal); Z68.43 Body mass index [BMI] 50.0-59.9, adult; E87.3 Alkalosis; E78.00 Pure hypercholesterolemia, unspecified; I10 Essential (primary) hypertension; E11.9 Type 2 diabetes mellitus without complications; E66.01 Morbid (severe) obesity due to excess calories; R06.01 Orthopnea; G89.29 Other chronic pain; M54.9 Dorsalgia, unspecified; F17.210 Nicotine dependence, cigarettes, uncomplicated; I25.2 Old myocardial infarction; Z95.5 Presence of coronary angioplasty implant and graft; Z79.899 Other long term (current) drug therapy; Z88.3 Allergy status to other anti-infective agents; Z79.4 Long term (current) use of insulin; Z92.3 Personal history of irradiation
CPT/HCPCS: 00790; 36415; 36600; 71046; 71275; 74019; 76705; 80048; 80053; 80202; 81001; 82550; 82553; 82565; 82803; 82962; 83690; 83880; 84484; 85025; 85027; 85610; 85730; 87070; 87075; 87077; 87086; 87186; 87205; 88304; 93005; 93010; 94640; 94667; 94762; 94799; 96361; 96374; 96375; 99285; G8978-GP; G8979-GP; J0131; J0330; J0690; J1644; J1815; J1885; J1940; J2250; J2270; J2405; J2543; J2704; J3010; J3370; J3480; J3490; J7030; J7060; J7620

== ENCOUNTER → 2018-07-28 | Outpatient (CLI) | payer MEDICARE, BC ==
--- NOTE | 2018-07-28 18:14 | RADIOLOGY REPORT (SQ) ---
EXAM DESCRIPTION: CT RT LOWER EXTREMITY WITHOUT COMPLETED DATE/TIME: 07/28/2018 5:36 pm REASON FOR STUDY: LEG SWELLING WITH PAIN M79.604 PAIN IN RIGHT LEG R22.41 LOCALIZED SWELLING, MASS AND LUMP, RIGHT LOWER LIMB COMPARISON: None. TECHNIQUE: Post arthrographic imaging performed through the right knee with reformatted coronal and sagittal imaging windowed for bone and soft tissues. All CT scanners at this facility use dose modulation, iterative reconstruction, and/or weight based d osing when appropriate to reduce radiation dose to as low as reasonably achievable (ALARA). [facility]: Dose Right [facility]: CareDose [facility]: Dose Right [facility]: Teradose 4D [facility]: [employer] RADIATION DOSE: CT Rad equipment meets quality standard of care and radiation dose reduction techniq ues were employed. CTDIvol: 4.1 mGy. DLP: 172 mGy-cm. mGy. LIMITATIONS: None. FINDINGS: Images of the right knee show no abnormal soft tissue edema above or below the knee. Ther e is no joint effusion. The medial and lateral joint spaces are narrowed. There are subchondral cys ts. Marginal osteophytes are present. There is narrowing of the patellofemoral joint with prominent posterior patellar and trochlear osteophytes. There is no fracture. IMPRESSION: Degenerative joint disease with no acute osseous or joint abnormality. TECHNICAL DOCUMENTATION: JOB ID: [id number] Quality ID # [id number]: Final reports with documentation of one or more dose reduction techniques (e.g., Au tomated exposure control, adjustment of the mA and/or kV according to patient size, use of iterative reconstruction technique) 2010 [facility]- All Rights Reserved Reading location - IP/workstation name: [email or web address]
== END ==
LOC: RAD 19:28
PROVIDERS: ATTEND Student in an Organized Health Care Education/Training Program
DX: M79.604 Pain in right leg (principal); R22.41 Localized swelling, mass and lump, right lower limb